=== PATIENT | female | born 1990 | race Caucasian/White ===

== ENCOUNTER 2017-03-23 20:40 | Emergency (ER) | payer OTHER ==
[2017-03-23] MEDS ORDERED: SODIUM CHLORIDE 0.9% 1,000 ML IV ONE (22:37)
[2017-03-23] MEDS ORDERED: KETOROLAC 30 MG/ML 1 ML VIAL IVP STA (22:37)
--- NOTE | 2017-03-23 22:38 | ED ---
General Adult HPI - General Chief complaint: Abdominal Pain Stated complaint: Back Pain Time Seen by Provider: 03/23/17 21:34 Source: patient, RN notes reviewed Mode of arrival: ambulatory Limitations: no limitations - History of Present Illness Initial comments: patient is a 26-year-old female presents to the emergency room for evaluation of low back pain. Patient states the pain has been going on for the last few days. Patient states she feels like she has a kidney infection. Patient states she has a history of kidney infections. Patient states been having on-and-off hot flashes and chills. Patient denies any pain or burning during urination or blood in urine. Patient denies history of kidney stones. Patient states she is nauseous but denies any vomiting. Patient denies abdominal pain. Patient denies constipation or diarrhea. - Related Data Home Medications Medication Instructions Recorded Confirmed Medroxyprogesterone Acetate 150 mg IM DIRECTED 05/01/15 08/21/16 [Depo-Provera] Omeprazole [PriLOSEC] 20 mg PO DAILY 08/21/16 08/21/16 Previous Rx's Medication Instructions Recorded Ibuprofen [Motrin] 600 mg PO Q6HR PRN #20 tab 03/24/17 Allergies Allergy/AdvReac Type Severity Reaction Status Date / Time cetirizine HCl [From Zyrtec] Allergy Unknown Rash/Hives Verified 03/23/17 20:46 Review of Systems ROS Statement: Those systems with pertinent positive or pertinent negative responses have been documented in the HPI. ROS Other: All systems not noted in ROS Statement are negative. Past Medical History Past Medical History: Hypertension Additional Past Medical History / Comment(s): Depression, migraine History of Any Multi-Drug Resistant Organisms: None Reported Past Surgical History: No Surgical Hx Reported Additional Past Surgical History / Comment(s): EGD Past Anesthesia/Blood Transfusion Reactions: No Reported Reaction Past Psychological History: Depression Smoking Status: Former smoker Past Alcohol Use History: None Reported Additional Past Alcohol Use History / Comment(s): Pt states she is prescribed Wellbutrin from her PCP Dr. Jolie Bedoya, however she quit taking it "a couple of weeks ago because I was going to bars drinking and singing Karoke." Past Drug Use History: None Reported - Past Family History Mother Family Medical History: Cancer General Exam - General Exam Comments Initial Comments: Laying in exam room, no distress. Limitations: no limitations General appearance: alert, in no apparent distress Head exam: Present: atraumatic, normocephalic, normal inspection Eye exam: Present: normal appearance ENT exam: Present: normal exam Neck exam: Present: normal inspection Respiratory exam: Present: normal lung sounds bilaterally. Absent: respiratory distress Cardiovascular Exam: Present: regular rate, normal rhythm, normal heart sounds GI/Abdominal exam: Present: soft, normal bowel sounds. Absent: distended, tenderness, guarding, rebound, rigid Extremities exam: Present: normal inspection Back exam: Present: normal inspection, CVA tenderness (R), CVA tenderness (L), paraspinal tenderness (B/L lumbosacral spine) Neurological exam: Present: alert, oriented X3, CN II-XII intact, normal gait Psychiatric exam: Present: normal affect, normal mood Skin exam: Present: warm, dry, intact, normal color. Absent: rash Course Vital Signs 03/23/17 03/24/17 20:43 01:38 Temperature 97.9 F 98.4 F Pulse Rate 72 74 Respiratory 16 18 Rate Blood Pressure 185/95 147/71 O2 Sat by Pulse 99 96 Oximetry Medical Decision Making - Medical Decision Making patient's 26-year-old female presents emergency room for evaluation of back pain. Pain is worse with movement. Urinalysis shows no concerning findings. Laceration of the concerning findings. CT abdomen/pelvis showed no signs of kidney infection. Patient most likely has a strain of the lower back. Advised patient take ibuprofen and to apply heat. Patient states she understands everything that was discussed with her. Return parameters discussed. Case discussed with Dr. Wong. - Lab Data Result diagrams: 03/23/17 22:25 03/23/17 22:25 Lab Results 03/23/17 03/23/17 03/23/17 Range/Units 22:25 22:25 22:25 WBC 11.8 H (3.8-10.6) k/uL RBC 4.46 (3.80-5.40) m/uL Hgb 12.1 (11.4-16.0) gm/dL Hct 37.4 (34.0-46.0) % MCV 83.9 (80.0-100.0) fL MCH 27.0 (25.0-35.0) pg MCHC 32.2 (31.0-37.0) g/dL RDW 14.9 (11.5-15.5) % Plt Count 311 (150-450) k/uL Neutrophils % 59 % Lymphocytes % 31 % Monocytes % 4 % Eosinophils % 3 % Basophils % 0 % Neutrophils # 7.0 (1.3-7.7) k/uL Lymphocytes # 3.7 (1.0-4.8) k/uL Monocytes # 0.5 (0-1.0) k/uL Eosinophils # 0.4 (0-0.7) k/uL Basophils # 0.1 (0-0.2) k/uL Sodium 142 (137-145) mmol/L Potassium 4.2 (3.5-5.1) mmol/L Chloride 110 H (98-107) mmol/L Carbon Dioxide 22 (22-30) mmol/L Anion Gap 10 mmol/L BUN 13 (7-17) mg/dL Creatinine 0.70 (0.52-1.04) mg/dL Est GFR (MDRD) Af Amer >60 (>60 ml/min/1.73 sqM) Est GFR (MDRD) Non-Af >60 (>60 ml/min/1.73 sqM) Glucose 83 (74-99) mg/dL Calcium 9.4 (8.4-10.2) mg/dL Total Bilirubin 0.3 (0.2-1.3) mg/dL AST 25 (14-36) U/L ALT 26 (9-52) U/L Alkaline Phosphatase 47 (38-126) U/L Total Protein 7.0 (6.3-8.2) g/dL Albumin 3.9 (3.5-5.0) g/dL Amylase 65 (30-110) U/L Lipase 136 (23-300) U/L Urine Color Urine Appearance (Clear) Urine pH (5.0-8.0) Ur Specific [place] (1.001-1.035) Urine Protein (Negative) Urine Glucose (UA) (Negative) Urine Ketones (Negative) Urine Blood (Negative) Urine Nitrite (Negative) Urine Bilirubin (Negative) Urine Urobilinogen (<2.0) mg/dL Ur Leukocyte Esterase (Negative) Urine HCG, Qual Not Detected (Not Detectd) 03/23/17 Range/Units 22:25 WBC (3.8-10.6) k/uL RBC (3.80-5.40) m/uL Hgb (11.4-16.0) gm/dL Hct (34.0-46.0) % MCV (80.0-100.0) fL MCH (25.0-35.0) pg MCHC (31.0-37.0) g/dL RDW (11.5-15.5) % Plt Count (150-450) k/uL Neutrophils % % Lymphocytes % % Monocytes % % Eosinophils % % Basophils % % Neutrophils # (1.3-7.7) k/uL Lymphocytes # (1.0-4.8) k/uL Monocytes # (0-1.0) k/uL Eosinophils # (0-0.7) k/uL Basophils # (0-0.2) k/uL Sodium (137-145) mmol/L Potassium (3.5-5.1) mmol/L Chloride (98-107) mmol/L Carbon Dioxide (22-30) mmol/L Anion Gap mmol/L BUN (7-17) mg/dL Creatinine (0.52-1.04) mg/dL Est GFR (MDRD) Af Amer (>60 ml/min/1.73 sqM) Est GFR (MDRD) Non-Af (>60 ml/min/1.73 sqM) Glucose (74-99) mg/dL Calcium (8.4-10.2) mg/dL Total Bilirubin (0.2-1.3) mg/dL AST (14-36) U/L ALT (9-52) U/L Alkaline Phosphatase (38-126) U/L Total Protein (6.3-8.2) g/dL Albumin (3.5-5.0) g/dL Amylase (30-110) U/L Lipase (23-300) U/L Urine Color Colorless Urine Appearance Clear (Clear) Urine pH 6.5 (5.0-8.0) Ur Specific [place] 1.002 (1.001-1.035) Urine Protein Negative (Negative) Urine Glucose (UA) Negative (Negative) Urine Ketones Negative (Negative) Urine Blood Negative (Negative) Urine Nitrite Negative (Negative) Urine Bilirubin Negative (Negative) Urine Urobilinogen <2.0 (<2.0) mg/dL Ur Leukocyte Esterase Negative (Negative) Urine HCG, Qual (Not Detectd) - Radiology Data Radiology results: report reviewed, image reviewed Disposition Clinical Impression: Low back pain Disposition: HOME SELF-CARE Condition: Good Instructions: Acute Low Back Pain (ED), Lower Back Exercises (ED) Additional Instructions: Take Tylenol or Motrin as needed for pain. Warm moist heat. Please follow up with primary care provider in 1-2 days. If any new symptom arises or symptoms worsen, return to ER as soon as possible. Prescriptions: Ibuprofen [Motrin] 600 mg PO Q6HR PRN #20 tab PRN Reason: Pain Referrals: Jolie Bedoya DO [Primary Care Provider] - 1-2 days Time of Disposition: 00:51
[2017-03-23 22:45] LABS: Basophils # (A) 0.1 k/uL (0-0.2); Basophils % (A) 0 %; CH 27.1; CHCM 32.4; Eosinophils # (A) 0.4 k/uL (0-0.7); Eosinophils % (A) 3 %; HCT 37.4 % (34.0-46.0); HDW 2.74; HGB 12.1 gm/dL (11.4-16.0); Luc # (Auto) 0.25; Luc % (Auto) 2; Lymphocytes # (A) 3.7 k/uL (1.0-4.8); Lymphocytes % (A) 31 %; MCHC 32.2 g/dL (31.0-37.0); MCV 83.9 fL (80.0-100.0); Mean Platelet Volume 6.8; Monocytes # (A) 0.5 k/uL (0-1.0); Monocytes % (A) 4 %; Neutrophils % (A) 59 %; RBC 4.46 m/uL (3.80-5.40); RDW 14.9 % (11.5-15.5); WBC 11.8 k/uL (3.8-10.6); WBC (Perox) 12.59
[2017-03-23 22:46] LABS: Appearance,Urine Clear (Clear); Bilirubin,Urine Negative (Negative); Glucose,Urine (UA) Negative (Negative); Ketones,Urine Negative (Negative); Leukocyte Esterase,Urine Negative (Negative); Nitrite,Urine Negative (Negative); PH, Urine 6.5 (5.0-8.0); Protein,Urine Negative (Negative); Specific Gravity,Urine 1.002 (1.001-1.035); UA Billing (MACRO vs. MICRO) CHEM; Urobilinogen,Urine <2.0 mg/dL (<2.0)
[2017-03-23 22:56] LABS: ALT 26 U/L (9-52); AST 25 U/L (14-36); Alkaline Phosphatase 47 U/L (38-126); Amylase 65 U/L (30-110); Anion Gap 10 mmol/L; Blood Urea Nitrogen 13 mg/dL (7-17); Calcium 9.4 mg/dL (8.4-10.2); Carbon Dioxide 22 mmol/L (22-30); Chloride 110 mmol/L (98-107); Glucose 83 mg/dL (74-99); Non-African American GFR(MDRD) >60 (>60 ml/min/1.73 sqM); Potassium 4.2 mmol/L (3.5-5.1); Sodium 142 mmol/L (137-145); Total Bilirubin 0.3 mg/dL (0.2-1.3)
--- NOTE | 2017-03-24 00:44 | CT ---
EXAM: CT Abdomen and Pelvis Without Intravenous Contrast CLINICAL HISTORY: Reason: Pain TECHNIQUE: Axial computed tomography images of the abdomen and pelvis without intravenous contrast. CTDI is 41.2 mGy and DLP is 2252.8 mGy-cm. This CT exam was performed using one or more of the following dose reduction techniques: automated exposure control, adjustment of the mA and/or kV according to patient size, and/or use of iterative reconstruction technique. COMPARISON: CT 08/21/16. FINDINGS: Artifacts: Motion artifact. Lower thorax: No acute findings. ABDOMEN: Liver: Unremarkable. Gallbladder and bile ducts: Cholelithiasis. Pancreas: Unremarkable. Spleen: Unremarkable. Adrenals: Unremarkable. Kidneys and ureters: Minimal prominence of the right greater than left renal collecting systems without evidence of ureteral stone. Stomach and bowel: Gastric wall thickening or underdistention. No evidence of bowel obstruction. Appendix: No findings to suggest acute appendicitis. PELVIS: Bladder: Unremarkable. Reproductive: Small right ovarian follicle/cyst measuring 2.3 cm. ABDOMEN and PELVIS: Intraperitoneal space: Unremarkable. No free air. No significant fluid collection. Bones/joints: No acute fracture. Soft tissues: Unremarkable. Vasculature: Unremarkable. Lymph nodes: Unremarkable. IMPRESSION: 1. Motion artifact. 2. Minimal prominence of the right greater than left renal collecting systems without evidence of ureteral stone. 3. Gastric wall thickening or underdistention. 4. Cholelithiasis. 5. Small right ovarian follicle/cyst.
[2017-03-24 01:40] VITALS: BP 147/71; PULSE 74; RESP 18; TEMP 98.4
== END 2017-03-24 01:15 | disposition home or self-care (01) ==
LOC: EC 20:40
DX: M54.5 Low back pain (principal); Z88.8 Allergy status to other drugs, medicaments and biological substances; Z87.891 Personal history of nicotine dependence; Z79.899 Other long term (current) drug therapy
CPT/HCPCS: 99284; 96374; 36415; 80053; 82150; 83690; 85025; 81003; 81025; 74176; J1885

== ENCOUNTER → 2018-03-28 | Outpatient (CLI) | payer OTHER ==
--- NOTE | 2018-03-28 20:23 | MR ---
EXAMINATION TYPE: MR brain wo DATE OF EXAM: 03/28/2018 COMPARISON: NONE HISTORY: Headaches T1-weighted sagittal, T2, FLAIR, and diffusion axial, and T2 coronal coronal views of the brain are s ubmitted. There is no evidence of acute ischemia. The ventricles, basal cisterns, and sulci overlying the conv exities are consistent with the patient's age. There is no mass effect. Craniocervical junction maintained. Sella turcica has a normal appearance. No cerebellopontine angle mass. There is changes of severe right maxillary sinusitis and moderate to severe ethmoidal sinusitis. IMPRESSION: 1. No acute intracranial process. 2. Severe right maxillary and ethmoidal sinusitis. EXAMINATION TYPE: MR cervical spine wo DATE OF EXAM: 03/28/2018 COMPARISON: NONE HISTORY: Headaches TECHNIQUE: T1 sagittal and coronal, T2 sagittal, and gradient echo axial views of the cervical spine are submitted. FINDINGS: The cranial cervical junction is preserved. There is no abnormal signal seen within the sp inal cord or paraspinal soft tissues. Large vertebral body hemangioma of T2. At C2-3 there is no degenerative disc disease, disc herniation, canal stenosis, or foraminal encroach ment. At C3-4 there is no degenerative disc disease, disc herniation, canal stenosis, or foraminal encroach ment At C4-5 there is no degenerative disc disease, disc herniation, canal stenosis, or foraminal encroach ment At C5-6 there is no degenerative disc disease, disc herniation, canal stenosis, or foraminal encroach ment At C6-7 there is no degenerative disc disease, disc herniation, canal stenosis, or foraminal encroach ment At C7-T1 there is no degenerative disc disease, disc herniation, canal stenosis, or foraminal encroac hment IMPRESSION: 1. No acute process.
--- NOTE | 2018-03-28 20:30 | MR ---
EXAMINATION TYPE: MR angio head wo con DATE OF EXAM: 03/28/2018 COMPARISON: NONE HISTORY: Headache TECHNIQUE: Utilizing 3-D [id number] intracranial MRA of the [place] was performed. FINDINGS: The vertebrobasilar and carotid systems are patent. There is mild prominence the anterior communicat ing artery.. Posterior cerebral artery in the right originates from the anterior circulation. IMPRESSION: 1. There is mild prominence and tortuosity at the level of the anterior communicating artery and coul d be related to tortuosity or a small fenestration. Tiny 1 to 2 mm aneurysm not excluded. Recommend a 6 month follow-up MRA [place].
== END ==
LOC: RADMRIMAIN 19:07
PROVIDERS: ATTEND Psychiatry & Neurology Neurology
DX: M54.2 Cervicalgia (principal); I77.1 Stricture of artery; M54.81 Occipital neuralgia
CPT/HCPCS: 70544; 70551; 72141

== ENCOUNTER 2018-04-03 21:10 | Emergency (ER) | payer OTHER ==
[2018-04-03 21:27] VITALS: RESP 18
[2018-04-03] MEDS ORDERED: diphenhydrAMINE 50 MG CAP PO STA (21:32)
[2018-04-03] MEDS ORDERED: METOCLOPRAMIDE 5 MG/ML 2 ML VIAL IM STA (21:32)
[2018-04-03] MEDS ORDERED: KETOROLAC 60 MG/2 ML VIAL IM STA (21:32)
--- NOTE | 2018-04-03 21:34 | ED ---
Headache HPI - General Chief Complaint: Headache Stated Complaint: Headache Time Seen by Provider: 04/03/18 21:17 Source: patient, family, RN notes reviewed Mode of arrival: ambulatory Limitations: no limitations - History of Present Illness Initial Comments: 27-year-old female presents emergency Department with chief complaint of a headache. Patient states that it started around 11 AM this morning. Patient states the headache has not worsened but states not resolved. She states is not the worse headache of her life. She complains of frontal headache and pressure and heart cheeks. Patient had recent MRI which showed acute sinusitis severe maxillary and sphenoid. Patient reports signs congestion and sinus pressure. Patient denies any focal weakness. She hasn't some light sensitivity but denies any nausea vomiting, fever, chills, neck pain or neck stiffness. - Related Data Home Medications Medication Instructions Recorded Confirmed Medroxyprogesterone Acetate 150 mg IM DIRECTED 05/01/15 04/03/18 [Depo-Provera] Omeprazole [PriLOSEC] 20 mg PO DAILY 08/21/16 04/03/18 Previous Rx's Medication Instructions Recorded Ibuprofen [Motrin] 600 mg PO Q6HR PRN #20 tab 03/24/17 Amoxicillin/Potassium Clav 1 tab PO Q12HR #20 tab 04/03/18 [Augmentin 875-125 Tablet] Butalb/APAP/Caff 50-325-40Mg 1 tab PO Q4H PRN #10 tablet 04/03/18 [Fioricet 50-325-40] Allergies Allergy/AdvReac Type Severity Reaction Status Date / Time cetirizine HCl [From Zyrtec] Allergy Unknown Rash/Hives Verified 04/03/18 21:26 Review of Systems ROS Statement: Those systems with pertinent positive or pertinent negative responses have been documented in the HPI. ROS Other: All systems not noted in ROS Statement are negative. Past Medical History Past Medical History: Hypertension Additional Past Medical History / Comment(s): Depression, migraine History of Any Multi-Drug Resistant Organisms: None Reported Past Surgical History: No Surgical Hx Reported Additional Past Surgical History / Comment(s): EGD Past Anesthesia/Blood Transfusion Reactions: No Reported Reaction Past Psychological History: Depression Smoking Status: Former smoker Past Alcohol Use History: None Reported Past Drug Use History: None Reported - Past Family History Mother Family Medical History: Cancer General Exam Limitations: no limitations General appearance: alert, in no apparent distress Head exam: Present: atraumatic, normocephalic, normal inspection Eye exam: Present: normal appearance, PERRL, EOMI. Absent: scleral icterus, conjunctival injection, periorbital swelling ENT exam: Present: normal oropharynx, mucous membranes moist, TM's normal bilaterally. Absent: normal exam (Moderate maxillary sinus tenderness and frontal) Neck exam: Present: normal inspection, full ROM. Absent: tenderness, meningismus, lymphadenopathy Respiratory exam: Present: normal lung sounds bilaterally. Absent: respiratory distress, wheezes, rales, rhonchi, stridor Cardiovascular Exam: Present: regular rate, normal rhythm, normal heart sounds. Absent: systolic murmur, diastolic murmur, rubs, gallop, clicks Extremities exam: Present: normal inspection, full ROM, normal capillary refill. Absent: tenderness, pedal edema, joint swelling, calf tenderness Neurological exam: Present: alert, oriented X3, CN II-XII intact, motor sensory deficit Skin exam: Present: warm, dry, intact, normal color. Absent: rash Course Vital Signs 04/03/18 21:21 Temperature 98.6 F Pulse Rate 92 Respiratory 18 Rate Blood Pressure 188/83 O2 Sat by Pulse 98 Oximetry Medical Decision Making - Medical Decision Making 27-year-old female presents from for headache. Patient's headache is related to sinusitis. Patient has normal neuro exam. Patient will be given IM injections in emergency Department discharge on Augmentin and follow up with ENT. Patient had an MRI which showed severe sinusitis recently. Patient also been referred to a neurosurgeon because there is a possible aneurysm. Patient' s headache is not the worse of her life. Patient will be given aerosols discharged. Return parameters were discussed Disposition Clinical Impression: Acute sinusitis, Headache Disposition: HOME SELF-CARE Condition: Stable Instructions: Acute Headache (ED) Additional Instructions: Please return to the Emergency Department if symptoms worsen or any other concerns. Prescriptions: Amoxicillin/Potassium Clav [Augmentin 875-125 Tablet] 1 tab PO Q12HR #20 tab Butalb/APAP/Caff 50-325-40Mg [Fioricet 50-325-40] 1 tab PO Q4H PRN #10 tablet PRN Reason: Headache Is patient prescribed a controlled substance at d/c from ED?: No Referrals: Jolie Bedoya DO [Primary Care Provider] - 1-2 days Yeyo Clement MD [STAFF PHYSICIAN] - 1-2 days Time of Disposition: 21:34
[2018-04-03 21:53] VITALS: BP 170/68; PULSE 91; TEMP 98.3
== END 2018-04-03 21:50 | disposition home or self-care (01) ==
LOC: EC 21:10
DX: J01.00 Acute maxillary sinusitis, unspecified (principal); J01.30 Acute sphenoidal sinusitis, unspecified; Z87.891 Personal history of nicotine dependence; Z79.3 Long term (current) use of hormonal contraceptives; Z79.899 Other long term (current) drug therapy; Z88.8 Allergy status to other drugs, medicaments and biological substances
CPT/HCPCS: 99283; 96372 ×2; J2765; J1885

== ENCOUNTER 2018-05-26 15:35 | Emergency (ER) | payer OTHER ==
[2018-05-26] MEDS ORDERED: SODIUM CHLORIDE 0.9% 1,000 ML IV STA ×2 (15:46)
[2018-05-26] MEDS ORDERED: ONDANSETRON 4 MG/2 ML VIAL IVP STA (15:59)
[2018-05-26] MEDS ORDERED: KETOROLAC 30 MG/ML 1 ML VIAL IVP STA (15:59)
[2018-05-26 16:18] LABS: Basophils # (A) 0.1 k/uL (0-0.2); Basophils % (A) 1 %; Eosinophils # (A) 0.2 k/uL (0-0.7); Eosinophils % (A) 2 %; HCT 41.4 % (34.0-46.0); HGB 13.5 gm/dL (11.4-16.0); Lymphocytes # (A) 2.9 k/uL (1.0-4.8); Lymphocytes % (A) 28 %; MCH 26.4 pg (25.0-35.0); MCHC 32.6 g/dL (31.0-37.0); MCV 81.1 fL (80.0-100.0); Mean Platelet Volume 7.2; Monocytes # (A) 0.5 k/uL (0-1.0); Monocytes % (A) 5 %; Neutrophils # (A) 6.5 k/uL (1.3-7.7); Neutrophils % (A) 63 %; Platelet Count 317 k/uL (150-450); RBC 5.11 m/uL (3.80-5.40); RDW 14.7 % (11.5-15.5); WBC 10.3 k/uL (3.8-10.6)
[2018-05-26 16:37] LABS: ALT 34 U/L (9-52); AST 24 U/L (14-36); Albumin 4.1 g/dL (3.5-5.0); Alkaline Phosphatase 50 U/L (38-126); Amylase 48 U/L (30-110); Anion Gap 9 mmol/L; Blood Urea Nitrogen 10 mg/dL (7-17); Calcium 9.6 mg/dL (8.4-10.2); Carbon Dioxide 23 mmol/L (22-30); Chloride 108 mmol/L (98-107); Glucose 84 mg/dL (74-99); Lipase 73 U/L (23-300); Potassium 4.3 mmol/L (3.5-5.1); Sodium 140 mmol/L (137-145); Total Bilirubin 0.5 mg/dL (0.2-1.3); Total Protein 7.2 g/dL (6.3-8.2)
--- NOTE | 2018-05-26 16:54 | US ---
EXAMINATION TYPE: US gallbladder DATE OF EXAM: 05/26/2018 COMPARISON: CT's CLINICAL HISTORY: Pain. RUQ pain EXAM MEASUREMENTS: Liver Length: 13.8 cm Gallbladder Wall: 0.1 cm CBD: 0.3 cm Right Kidney: 11.8 x 4.5 x 4.8 cm Very limited scan due to body habitus and midline bowel gas. Pancreas: not visualized due to midline bowel gas Liver: difficult to penetrate Gallbladder: several tiny mobile stones Evidence for sonographic Vilchis's sign: Yes CBD: wnl Right Kidney: No hydronephrosis or masses seen IMPRESSION: Multiple small gallstones. No dilated ducts.
--- NOTE | 2018-05-26 16:57 | ED ---
Abdominal Pain HPI - General Chief Complaint: Abdominal Pain Stated Complaint: gallstone pain Time Seen by Provider: 05/26/18 15:45 Source: patient, RN notes reviewed, old records reviewed Mode of arrival: ambulatory Limitations: no limitations - History of Present Illness Initial Comments: 27-year-old female with a history of gallstones presents emergency department today with onset of right-sided abdominal pain. Patient reports the pain is worse with eating. She's had multiple episodes of vomiting within the past 2 days. Patient states that she has an appointment on Tuesday with Dr. Nina. She denies any fever or chills. Patient states that she's had no chest pain or shortness of breath. Normal bowel movements yesterday and normal urination. She is currently treated with Augmentin for chronic sinusitis. She' s been on these medications for the past month. - Related Data Home Medications Medication Instructions Recorded Confirmed Amoxic-Pot Clav 875-125Mg 1 tab PO BID 05/26/18 05/26/18 [Augmentin 875-125] Previous Rx's Medication Instructions Recorded Metoclopramide [Reglan] 10 mg PO ACHS #12 tab 05/26/18 traMADol HCL [Ultram] 50 mg PO Q6HR PRN 3 Days #12 tab 05/26/18 Allergies Allergy/AdvReac Type Severity Reaction Status Date / Time cetirizine HCl [From Zyrtec] Allergy Unknown Rash/Hives Verified 05/26/18 15:42 benzoyl peroxide Allergy Rash/Hives Verified 05/26/18 15:42 العراق[place] Allergy Rash/Hives Verified 05/26/18 15:42 SUN AdvReac Rash/Hives Uncoded 05/26/18 15:42 Review of Systems ROS Statement: Those systems with pertinent positive or pertinent negative responses have been documented in the HPI. ROS Other: All systems not noted in ROS Statement are negative. Past Medical History Past Medical History: Hypertension Additional Past Medical History / Comment(s): Depression, migraine History of Any Multi-Drug Resistant Organisms: None Reported Past Surgical History: No Surgical Hx Reported Additional Past Surgical History / Comment(s): EGD Past Anesthesia/Blood Transfusion Reactions: No Reported Reaction Past Psychological History: Depression Smoking Status: Former smoker Past Alcohol Use History: None Reported Past Drug Use History: None Reported - Past Family History Mother Family Medical History: Cancer General Exam - General Exam Comments Initial Comments: This is a 27-year-old male. Alert and oriented. No acute distress. Limitations: no limitations General appearance: alert, in no apparent distress Head exam: Present: atraumatic Eye exam: Present: normal appearance, PERRL, EOMI. Absent: scleral icterus, conjunctival injection, periorbital swelling ENT exam: Present: normal exam, mucous membranes moist Neck exam: Present: normal inspection. Absent: tenderness, meningismus, lymphadenopathy Respiratory exam: Present: normal lung sounds bilaterally. Absent: respiratory distress, wheezes, rales, rhonchi, stridor Cardiovascular Exam: Present: regular rate, normal rhythm, normal heart sounds. Absent: systolic murmur, diastolic murmur, rubs, gallop, clicks GI/Abdominal exam: Present: tenderness (Right upper quadrant), normal bowel sounds. Absent: soft ( tenderness.), distended, guarding, rebound, rigid Extremities exam: Present: normal inspection, full ROM, normal capillary refill. Absent: tenderness, pedal edema, joint swelling, calf tenderness Back exam: Present: normal inspection Neurological exam: Present: alert, oriented X3, CN II-XII intact Psychiatric exam: Present: normal affect, normal mood Skin exam: Present: warm Course Vital Signs 05/26/18 05/26/18 15:40 18:00 Temperature 98.7 F Pulse Rate 86 73 Respiratory 18 20 Rate Blood Pressure 134/99 143/88 O2 Sat by Pulse 98 100 Oximetry Medical Decision Making - Medical Decision Making 27-year-old female presents emergency department today with right upper quadrant abdominal pain. Worse with past 2 days. She's had had a history of gall process. This time I will obtain was unremarkable. Patient's white count is normal. Liver enzymes are normal. Urinalysis negative. At this time patient's ultrasound is showing small gallstones. No evidence of instructed process. Positive Vilchis sign. However Patient is afebrile vitals are stable. Patient will be discharged with close follow-up with primary care provider. She does have an appointment on Tuesday with Dr. Nina. Patient understood history plan will comply. Return parameters were discussed. Given a short course of pain medication. Patient filled out opiate awareness 1. - Lab Data Result diagrams: 05/26/18 16:00 05/26/18 16:00 Lab Results 05/26/18 05/26/18 05/26/18 Range/Units 16:00 16:00 18:06 WBC 10.3 (3.8-10.6) k/uL RBC 5.11 (3.80-5.40) m/uL Hgb 13.5 (11.4-16.0) gm/dL Hct 41.4 (34.0-46.0) % MCV 81.1 (80.0-100.0) fL MCH 26.4 (25.0-35.0) pg MCHC 32.6 (31.0-37.0) g/dL RDW 14.7 (11.5-15.5) % Plt Count 317 (150-450) k/uL Neutrophils % 63 % Lymphocytes % 28 % Monocytes % 5 % Eosinophils % 2 % Basophils % 1 % Neutrophils # 6.5 (1.3-7.7) k/uL Lymphocytes # 2.9 (1.0-4.8) k/uL Monocytes # 0.5 (0-1.0) k/uL Eosinophils # 0.2 (0-0.7) k/uL Basophils # 0.1 (0-0.2) k/uL Sodium 140 (137-145) mmol/L Potassium 4.3 (3.5-5.1) mmol/L Chloride 108 H (98-107) mmol/L Carbon Dioxide 23 (22-30) mmol/L Anion Gap 9 mmol/L BUN 10 (7-17) mg/dL Creatinine 0.68 (0.52-1.04) mg/dL Est GFR (CKD-EPI)AfAm >90 (>60 ml/min/1.73 sqM) Est GFR (CKD-EPI)NonAf >90 (>60 ml/min/1.73 sqM) Glucose 84 (74-99) mg/dL Calcium 9.6 (8.4-10.2) mg/dL Total Bilirubin 0.5 (0.2-1.3) mg/dL AST 24 (14-36) U/L ALT 34 (9-52) U/L Alkaline Phosphatase 50 (38-126) U/L Total Protein 7.2 (6.3-8.2) g/dL Albumin 4.1 (3.5-5.0) g/dL Amylase 48 (30-110) U/L Lipase 73 (23-300) U/L Urine Color Urine Appearance (Clear) Urine pH (5.0-8.0) Ur Specific [place] (1.001-1.035) Urine Protein (Negative) Urine Glucose (UA) (Negative) Urine Ketones (Negative) Urine Blood (Negative) Urine Nitrite (Negative) Urine Bilirubin (Negative) Urine Urobilinogen (<2.0) mg/dL Ur Leukocyte Esterase (Negative) Urine RBC (0-5) /hpf Urine WBC (0-5) /hpf Ur Squamous Epith Cells (0-4) /hpf Urine Mucus (None) /hpf Urine HCG, Qual Not Detected (Not Detectd) 05/26/18 Range/Units 18:06 WBC (3.8-10.6) k/uL RBC (3.80-5.40) m/uL Hgb (11.4-16.0) gm/dL Hct (34.0-46.0) % MCV (80.0-100.0) fL MCH (25.0-35.0) pg MCHC (31.0-37.0) g/dL RDW (11.5-15.5) % Plt Count (150-450) k/uL Neutrophils % % Lymphocytes % % Monocytes % % Eosinophils % % Basophils % % Neutrophils # (1.3-7.7) k/uL Lymphocytes # (1.0-4.8) k/uL Monocytes # (0-1.0) k/uL Eosinophils # (0-0.7) k/uL Basophils # (0-0.2) k/uL Sodium (137-145) mmol/L Potassium (3.5-5.1) mmol/L Chloride (98-107) mmol/L Carbon Dioxide (22-30) mmol/L Anion Gap mmol/L BUN (7-17) mg/dL Creatinine (0.52-1.04) mg/dL Est GFR (CKD-EPI)AfAm (>60 ml/min/1.73 sqM) Est GFR (CKD-EPI)NonAf (>60 ml/min/1.73 sqM) Glucose (74-99) mg/dL Calcium (8.4-10.2) mg/dL Total Bilirubin (0.2-1.3) mg/dL AST (14-36) U/L ALT (9-52) U/L Alkaline Phosphatase (38-126) U/L Total Protein (6.3-8.2) g/dL Albumin (3.5-5.0) g/dL Amylase (30-110) U/L Lipase (23-300) U/L Urine Color Light Yellow Urine Appearance Cloudy H (Clear) Urine pH 6.0 (5.0-8.0) Ur Specific [place] 1.009 (1.001-1.035) Urine Protein Negative (Negative) Urine Glucose (UA) Negative (Negative) Urine Ketones Negative (Negative) Urine Blood Negative (Negative) Urine Nitrite Negative (Negative) Urine Bilirubin Negative (Negative) Urine Urobilinogen <2.0 (<2.0) mg/dL Ur Leukocyte Esterase Negative (Negative) Urine RBC 7 H (0-5) /hpf Urine WBC 1 (0-5) /hpf Ur Squamous Epith Cells 6 H (0-4) /hpf Urine Mucus Rare H (None) /hpf Urine HCG, Qual (Not Detectd) - Radiology Data Radiology results: report reviewed Multiple small gallstones. No evidence of dilated ducts. Evidence of sonographic Vilchis sign time. Disposition Clinical Impression: Biliary colic Disposition: HOME SELF-CARE Condition: Good Instructions: Biliary Colic (ED) Additional Instructions: Clear liquid diet. Patient should follow-up with surgeon on Tuesday. Return to emergency department if any alarming signs or symptoms occur. Prescriptions: Metoclopramide [Reglan] 10 mg PO ACHS #12 tab traMADol HCL [Ultram] 50 mg PO Q6HR PRN 3 Days #12 tab PRN Reason: Pain Is patient prescribed a controlled substance at d/c from ED?: Yes When asked, does pt state using other controlled substances?: No If prescribed controlled substance>3 days was MAPS reviewed?: Prescribed <3 Days If opioid is for acute pain is fill amount 7 days or less?: Yes If Rx opioid, was Start Talking consent form obtained?: Yes Referrals: Jolie Bedoya DO [Primary Care Provider] - 1-2 days Time of Disposition: 18:46
[2018-05-26 18:27] LABS: Appearance,Urine Cloudy (Clear); Bilirubin,Urine Negative (Negative); Blood,Urine Negative (Negative); Color,Urine Light Yellow; Glucose,Urine (UA) Negative (Negative); Ketones,Urine Negative (Negative); Leukocyte Esterase,Urine Negative (Negative); Mucus,Urine Rare /hpf; Nitrite,Urine Negative (Negative); Protein,Urine Negative (Negative); RBC,Urine 7 /hpf (0-5); Specific Gravity,Urine 1.009 (1.001-1.035); Squamous Epithelial Cell,Urine 6 /hpf (0-4); Urobilinogen,Urine <2.0 mg/dL (<2.0); WBC,Urine 1 /hpf (0-5)
[2018-05-26 19:28] VITALS: BP 148/82; PULSE 71; RESP 18; TEMP 97.1
== END 2018-05-26 19:28 | disposition home or self-care (01) ==
LOC: EC 15:35
DX: K80.70 Calculus of gallbladder and bile duct without cholecystitis without obstruction (principal); Z87.891 Personal history of nicotine dependence; Z91.018 Allergy to other foods; Z91.048 Other nonmedicinal substance allergy status; Z88.8 Allergy status to other drugs, medicaments and biological substances
CPT/HCPCS: 36415; 80053; 82150; 83690; 85025; 81001; 81025; 76705; 99284; 96374; 96375; 96361 ×3; J2405; J1885

== ENCOUNTER 2018-06-09 10:24 | Day surgery (SDC) | payer OTHER ==
[2018-06-02 14:52] VITALS: BMI 53.0
--- NOTE | 2018-06-09 08:25 | P.GSHP ---
History of Present Illness H&P Date: 06/09/18 CHIEF COMPLAINT: Cholecystitis HISTORY OF PRESENT ILLNESS: The patient is a 27-year-old female who presents with history of epigastric including right upper quadrant abdominal pain. She underwent diagnostic studies for her gallbladder. Separately her clinical picture was consistent with cholecystitis. Now she presents for surgical intervention. PAST MEDICAL HISTORY: Please see list PAST SURGICAL HISTORY: Please see list MEDICATIONS: Please see list ALLERGIES: Denies. SOCIAL HISTORY: No illicit drug use or recent tobacco use FAMILY HISTORY: Pertinent for gallbladder disease REVIEW OF ORGAN SYSTEMS: CONSTITUTIONAL: No reports of fevers or chills. HEENT: Denies any troubles with the vision or hearing. ENDOCRINE: No reports of hypothyroidism. No diabetes. RESPIRATORY: No recent pneumonias. CARDIOVASCULAR: Denies chest pain or palpitations GI: No blood in stools or constipation. MUSCULOSKELETAL: Has occasional joint pain including back pain. NEURO: No seizure disorders or headaches. No recent stroke. PSYCH: No depression or suicidal ideation. HEMATOLOGIC: No personal or family history of DVTs or pulmonary emboli. PHYSICAL EXAM: VITAL SIGNS: Afebrile vital signs stable GENERAL: Well-developed pleasant in no acute distress. HEENT: No scleral icterus. Extraocular movements grossly intact. Moist buccal mucosa. NECK: Supple without lymphadenopathy. CHEST: Unlabored respirations. Equal bilateral excursions. CARDIOVASCULAR: Regular rate regular rhythm rhythm. Distal 2+ pulses. ABDOMEN: Soft, nondistended. Tender along the epigastrium and right upper quadrant. MUSCULOSKELETAL: No clubbing, cyanosis, or edema. NEURO: Cranial nerves II to XII within normal limits. No focal or lateralizing signs. PSYCH: Alert and oriented to person, place and time. ASSESSMENT: 1. Epigastric and right upper quadrant abdominal pain 2. Chronic cholecystitis 3. Symptomatic gallstones. PLAN: 1. Will need a robotic cholecystectomy possible open. Benefits and risks were described. 2. Heparin for DVT prophylaxis 5000 units. 3. Antibiotic prophylaxis. Past Medical History Past Medical History: Hypertension, Neurologic Disorder Additional Past Medical History / Comment(s): , HTN UNDER CONTROL AT THIS TIME, migraine, GALLBLADDER DISORDER History of Any Multi-Drug Resistant Organisms: None Reported Past Surgical History: No Surgical Hx Reported Additional Past Surgical History / Comment(s): EGD Past Anesthesia/Blood Transfusion Reactions: No Reported Reaction Smoking Status: Former smoker - Past Family History Mother Family Medical History: Cancer Medications and Allergies Home Medications Medication Instructions Recorded Confirmed Type Medroxyprogesterone Acetate 150 mg IM Q90D 06/02/18 06/02/18 History [Depo-Provera] Naproxen Sodium [Aleve] 220 mg PO BID PRN 06/02/18 06/02/18 History Allergies Allergy/AdvReac Type Severity Reaction Status Date / Time cetirizine HCl [From [facility]] Allergy Unknown Rash/Hives Verified 06/02/18 14:46 benzoyl peroxide Allergy Rash/Hives Verified 06/02/18 14:46 العراقي Allergy Rash/Hives Verified 06/02/18 14:46 SUN AdvReac Rash/Hives Uncoded 06/02/18 14:46
[~2018-06-09 10:24] MED LIST: DEXAMETHASONE SOD PHOSPHATE 10 MG/ML 1 ML VIAL IV ONE; HEPARIN SODIUM,PORCINE 5,000 UNIT/ML 1 ML VIAL SQ ONE; INDOCYANINE GREEN 25 MG VIAL IV STA; LACTATED RINGERS 1,000 ML IV SCH; LIDOCAINE 1% 20 ML VIAL (10MG/ML) FOR IV START INTRADERMA PRN; MIDAZOLAM 2 MG/2 ML VIAL IV PRN
[2018-06-09 11:43] VITALS: RESP 16
[2018-06-09] MEDS: ONDANSETRON 4 MG/2 ML VIAL IVP ONE ×2 (11:44→14:45)
[2018-06-09] MEDS ORDERED: MIDAZOLAM 2 MG/2 ML VIAL ONE (12:55)
[2018-06-09] MEDS ORDERED: LIDOCAINE 1% INJ 10MG/ML (20 ML MDV) ONE (12:55)
[2018-06-09] MEDS ORDERED: fentaNYL (PF) 50 MCG/ML 2 ML AMP ONE (12:55)
[2018-06-09] MEDS ORDERED: NEOSTIGMINE 1 MG/ML 10 ML VIAL ONE (12:55)
[2018-06-09] MEDS ORDERED: ROCURONIUM BROMIDE 10 MG/ML 10 ML VIAL IV ONE (12:55)
[2018-06-09] MEDS ORDERED: SUCCINYLCHOLINE CHLORIDE 100 MG/5 ML SYR IV ONE (12:55)
[2018-06-09] MEDS ORDERED: GLYCOPYRROLATE 0.2 MG/ML 2 ML VIAL ONE (12:55)
[2018-06-09] MEDS ORDERED: PROPOFOL 10 MG/ML 20 ML VIAL IV ONE (12:55)
[2018-06-09] MEDS ORDERED: HYDROmorphone (PF) 1 MG/ML ONE (12:55)
[2018-06-09] MEDS ORDERED: BUPIVACAIN-EPI 0.5%-1:200,000 30 ML VIAL SQ ONE ×2 (13:17→13:23)
[2018-06-09] MEDS ORDERED: LACTATED RINGERS 1,000 ML IV ONE ×2 (13:44→13:55)
--- NOTE | 2018-06-09 14:07 | P.OP ---
Date of Procedure: 06/09/18 Description of Procedure: SURGEON: JOSE ESPARZA MD PREOPERATIVE DIAGNOSES: 1. Symptomatic gallstones 2. Chronic cholecystitis 3. Morbid obesity due to excess calories, BMI 53.0 POSTOPERATIVE DIAGNOSES: 1. Symptomatic gallstones 2. Chronic cholecystitis 3. Morbid obesity due to excess calories, BMI 53.0 OPERATION: Robotic-assisted da Angie Xi laparoscopic cholecystectomy, multiport with FIREFLY ESTIMATED BLOOD LOSS: 5 mL. SPECIMENS REMOVED: Gallbladder. COMPLICATIONS: None. OPERATIVE FINDINGS: 1. Chronic cholecystitis INDICATIONS: The patient is a 27-year-old female who presents with cholelcystitis. Surgical intervention with a laparoscopic cholecystectomy was described at length including injury to the biliary tree, bleeding, infection, need for further surgery. Informed consent was obtained. Robotic assisted laparoscopic approach was described. Benefits and risks of the procedure including but not limited to bleeding, infection, injury to the biliary tree was described. Informed consent was obtained. DESCRIPTION OF PROCEDURE: Patient was brought to the operating room, placed in supine position. After general induction, the abdomen had been prepped and draped in standard sterile fashion. The robotic da Angie XI system was primed. After a timeout protocol was performed, the patient had been prepped and draped in standard sterile fashion. The patient was injected with indocyanine green. A 5 mm 0 degrees laparoscopic trocar entry was performed along the left upper quadrant. The abdomen insufflated to 15 mmHg pressure which she tolerated well. Diagnostic laparoscopy demonstrated no injury to bowel viscera or mesentery. The liver surface was unremarkable. Next, two 8 mm robotic ports were placed along the right upper abdomen. The camera 8-mm port was maintained along the epigastrium. Another 8 mm port was placed along the left upper abdominal wall after exchanging the 5 mm port. Please note that the ports were placed at least 10 to 15 cm away from the target anatomy of the gallbladder. The robot was docked along the left lateral abdomen. The patient was repositioned in reverse Trendelenburg position. Using a grasper for arm 3, a grasper for arm 4, including hook cautery for arm 1 , the robotic system was docked and primed as described. Instruments were interchanged by the acute care certified nursing assistant including hook cautery, Bovie cautery and clip appliers. I had sat at the console. Adhesions were identified along the infundibulum of the gallbladder and addressed using hook cautery. The gallbladder fundus was retracted over the dome of the liver. Initial attention was brought to the infundibulum which was gently retracted in the inferior lateral approach. Using a grasper, the cystic duct including the cystic artery was carefully skeletonized. FIREFLY was used to identify the cystic artery and cystic structures. Large PLASTIC clips were used throughout the entire case. Using a clip haulage boss 2 clips were placed proximally, and 1 clip was placed distally along the cystic duct and then cauterized with the cautery. Again care was taken to avoid any injury to the biliary tree as the common bile duct was clearly visualized during this portion of dissection. Next, the cystic artery was similarly clipped and cauterized. Electro-Bovie cautery was used to remove the gallbladder from the hepatic fossa. Hemostasis was checked and found to be adequate. The robot was undocked. I re-scrubbed into the case. Using a 10 mm Endo Catch bag via the left upper quadrant incision, the specimen was removed from the abdominal cavity. All pneumoperitoneum instruments were evacuated from the abdominal cavity. The incisions were reapproximated using 4-0 Monocryl in an interrupted subcuticular fashion. Fascial defects were less than 8 mm in size. Please note along the trocar sites, local anesthetic was placed as a field block prior to insertion of all instruments. Liquid glue was applied to the skin. At the end of the procedure needle, sponge, and instrument count had been verified correct by the surgical elastic knitter hand frame. The patient was transferred to postanesthesia care unit in stable condition. Intraoperative films were shared with the patient's family who were very pleased with the level of care. Console time 13 minutes Plan - Discharge Summary New Discharge Prescriptions: No Action Naproxen Sodium [Aleve] 220 mg PO BID PRN PRN Reason: Headache Medroxyprogesterone Acetate [Depo-Provera] 150 mg IM Q90D Discharge Medication List Medroxyprogesterone Acetate [Depo-Provera] 150 mg IM Q90D 06/02/18 [History] Naproxen Sodium [Aleve] 220 mg PO BID PRN 06/02/18 [History]
[2018-06-09 14:19] VITALS: TEMP 97.8
[2018-06-09] MEDS: fentaNYL (PF) 50 MCG/ML 2 ML AMP IV PRN ×2 (14:25→14:33)
[2018-06-09] MEDS: HYDROmorphone 1 MG/ML 1 ML SYRINGE IVP ONE ×2 (14:50→14:59)
[2018-06-09 16:18] VITALS: BP 128/73; PULSE 80
[2018-06-09] MEDS ORDERED: HYDROcodone/APAP 5-325MG 1 EACH TAB PO ONE (16:22)
== END 2018-06-09 17:19 | disposition home or self-care (01) ==
LOC: OR 10:24
PROVIDERS: ATTEND Surgery Plastic and Reconstructive Surgery
DX: K80.10 Calculus of gallbladder with chronic cholecystitis without obstruction (principal); E66.01 Morbid (severe) obesity due to excess calories; Z68.43 Body mass index [BMI] 50.0-59.9, adult; I10 Essential (primary) hypertension; Z87.891 Personal history of nicotine dependence; Z79.3 Long term (current) use of hormonal contraceptives; Z88.8 Allergy status to other drugs, medicaments and biological substances; Z91.018 Allergy to other foods; Z91.09 Other allergy status, other than to drugs and biological substances; G43.909 Migraine, unspecified, not intractable, without status migrainosus; F32.9 Major depressive disorder, single episode, unspecified
CPT/HCPCS: 47562; S2900; 81025; 88304

== ENCOUNTER → 2019-03-21 | Outpatient (CLI) | payer OTHER ==
--- NOTE | 2019-03-21 14:09 | MR ---
EXAMINATION TYPE: MR angio head wo con DATE OF EXAM: 03/21/2019 COMPARISON: 03/28/2018 HISTORY: GANN, Abn MRA head TECHNIQUE: Time of flight images focusing on the [place] of [place] were performed without contrast.. 2-D and 3-D postprocessing imaging is performed. 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 Otherwise the post erior circulation is intact and unremarkable. 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 This is unchanged from the prior. The remainder of the anterior circulation is unremarkable without aneurysmal formation, di ssection, or focal stenosis. 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
== END | disposition home or self-care (01) ==
LOC: RADMRIMAIN 11:26
PROVIDERS: ATTEND Psychiatry & Neurology Neurology
DX: I77.1 Stricture of artery (principal); R51 Headache
CPT/HCPCS: 70544

== ENCOUNTER → 2019-12-05 | Outpatient (CLI) | payer OTHER ==
[2019-12-05 16:41] LABS: INR 0.9 (<1.2); Partial Thromboplastin Time 23.8 sec (22.0-30.0); Prothrombin Time 9.5 sec (9.0-12.0)
[2019-12-05 16:44] LABS: HCT 39.7 % (34.0-46.0); HGB 12.7 gm/dL (11.4-16.0); MCH 27.1 pg (25.0-35.0); MCHC 32.1 g/dL (31.0-37.0); MCV 84.5 fL (80.0-100.0); Mean Platelet Volume 7.9; Platelet Count 341 k/uL (150-450); RDW 14.3 % (11.5-15.5); WBC 9.7 k/uL (3.8-10.6)
[2019-12-06 01:36] LABS: % Iron Saturation 9.44 (12.00-45.00); African American GFR (CKD) 101.6 (60.0-200.0); Albumin 4.5 g/dL (3.80-4.90); Albumin/Globulin Ratio 2.05 (1.60-3.17); Anion Gap 13.1 mmol/L (4.00-12.00); BUN/Creat Ratio 13.33 Ratio (12.00-20.00); Calcium 9.3 mg/dL (8.7-10.3); Carbon Dioxide 22.9 mmol/L (21.6-31.8); Chol/HDL Ratio 5.12; Globulin 2.2 g/dL (1.6-3.3); LDL Cholesterol,Calculated 92.4 mg/dL (0.0-131.0); Non-African American GFR(CKD) 87.6 (60.0-200.0); Phosphorus 4.4 mg/dL (2.4-5.1); Potassium 4.5 mmol/L (3.5-5.5); Total Bilirubin 0.2 mg/dL (0.3-1.2); Total Protein 6.7 g/dL (6.2-8.2); VLDL Calculation 43.6 mg/dL (5.00-40.00)
[2019-12-06 01:43] LABS: Hemoglobin A1C 5.3 % (4.0-6.0)
[2019-12-06 01:44] LABS: Ferritin 92.2 ng/mL (10.0-291.0)
[2019-12-06 13:02] LABS: Zinc, Serum 66 ug/dL (60-130)
[2019-12-07 07:21] LABS: Vitamin A 62 ug/dL (38-106)
[2019-12-08 01:06] LABS: Selenium 92 mcg/L (63-160)
[2019-12-08 09:17] LABS: Vit B1(Thiamine) 92 ug/L (38-122)
== END ==
LOC: LABWHC1 15:21
PROVIDERS: ATTEND Surgery Plastic and Reconstructive Surgery
DX: Z01.818 Encounter for other preprocedural examination (principal); Z01.812 Encounter for preprocedural laboratory examination; E66.01 Morbid (severe) obesity due to excess calories; E21.1 Secondary hyperparathyroidism, not elsewhere classified; E89.1 Postprocedural hypoinsulinemia; D50.9 Iron deficiency anemia, unspecified; E44.0 Moderate protein-calorie malnutrition; E55.9 Vitamin D deficiency, unspecified; K74.1 Hepatic sclerosis; N19 Unspecified kidney failure; K50.90 Crohn's disease, unspecified, without complications
CPT/HCPCS: 36415; 80053; 80061; 82306; 82525; 82607; 82728; 82746; 83036; 83540; 83550; 83735; 83970; 84100; 84134; 84255; 84425; 84443; 84590; 84630; 85027; 85610; 85730; 93005

== ENCOUNTER → 2019-12-05 | Outpatient (CLI) | payer OTHER ==
--- NOTE | 2019-12-05 14:40 | P.HPBAR ---
Bariatric H&P - History & Physicial H&P Date: 12/05/19 History & Physicial: Visit/CC: Patient initial contact: Initial weight: Initial weight in pounds: Height: Initial BMI: Last weight: Current weight: Current weight in pounds: Current BMI: Colt body weight (based on NIH guidelines): Excess body weight loss: The patient is a 29 year-old F who presents for Bariatric Assessment. HPI: She is looking into the sleeve gastrectomy. She reports reflux. Highest weight 293 pounds. She has tried medical supervised weight loss for weight loss including diuretics. She reports lower back pain with scoliosis. No hip pain. She has left knee pain. No ankle pain or foot pain. She comes in with high blood pressure taking flaxseed. She comes with chronic fatigue. No prior testing for sleep apnea. She reports family history of weight issues in her mother. No family colon cancer. Only leukemia and breast cancer. No PEs. No family history of blood clots, possibly in her mother. She reports chronic constipation from her father side. She reports abdominal pain. Gallbladder is removed. PLAN: 1. [facility] [place] [facility] 2. Recommend CT abd pelvis for kidney stones and right sided abdominal pain. Past Medical History Past Medical History: Hypertension, Neurologic Disorder Additional Past Medical History / Comment(s): , HTN UNDER CONTROL AT THIS TIME, migraine, GALLBLADDER DISORDER History of Any Multi-Drug Resistant Organisms: None Reported Past Surgical History: No Surgical Hx Reported, Cholecystectomy Additional Past Surgical History / Comment(s): EGD Past Anesthesia/Blood Transfusion Reactions: No Reported Reaction Past Psychological History: Depression Smoking Status: Former smoker - Past Family History Mother Family Medical History: Cancer Bariatric Checklist Checklist: Plan: Checklist: EGD: 1. Hiatal hernia: 2. H. Pylori: HgbA1c: Vitamin D: Smoking: Former smoker Primary care physician referral: Psychiatry clearance: Cardiology clearance: Sleep study: Diet journal: VTE risk score: VTE risk level: Rehab needs at discharge:
[2019-12-05 14:57] VITALS: BP 153/91; PULSE 83; TEMP 98.1; BMI 51.1
== END ==
LOC: BARWHC3 13:45
PROVIDERS: ATTEND Surgery Plastic and Reconstructive Surgery
DX: K21.9 Gastro-esophageal reflux disease without esophagitis (principal); M54.5 Low back pain; M41.9 Scoliosis, unspecified; M25.562 Pain in left knee; I10 Essential (primary) hypertension; R10.9 Unspecified abdominal pain; R53.82 Chronic fatigue, unspecified; Z87.891 Personal history of nicotine dependence; Z90.49 Acquired absence of other specified parts of digestive tract
CPT/HCPCS: 99211

== ENCOUNTER → 2019-12-15 | Outpatient (CLI) | payer OTHER ==
--- NOTE | 2019-12-16 14:34 | CT ---
EXAMINATION TYPE: CT abdomen pelvis w con DATE OF EXAM: 12/15/2019 COMPARISON: 03/23/2017 INDICATION: diverticulitis, Rt flank pain DLP: 2344.2 mGycm, Automated exposure control for dose reduction was used. CONTRAST: 100 mL of Isovue 300. Study performed with Oral Contrast TECHNIQUE: Axial images were obtained from above the diaphragm to the pubic rami in the axial plane a t 5 mm thick sections. Reconstructed images are reviewed on the computer in the coronal plane. FINDINGS: Limited CT sections are obtained the lung bases. The lung bases are clear. CT ABDOMEN: Liver: Normal Spleen: Normal Pancreas: Normal Adrenal glands: The adrenal glands are normal. Gallbladder: Normal Kidneys: No masses are evident. No hydronephrosis is present. No hydroureter is evident. No cysts ar e present. Delayed images were obtained through the kidneys, which remain unremarkable. Aorta: Vascular calcification is within the aorta. Inferior vena cava: Normal. CT PELVIS: Loops of bowel within the abdomen and pelvis are normal. There are loops of bowel which are incom pletely distended or lack oral contrast limiting their evaluation. Fecal debris is within the distal colon. No significant diverticulosis is present. No inflammatory changes to suggest acute diverticuli tis is evident. Appendix: Normal as visualized. Urinary bladder: Normal. Genitourinary structures: Uterus and adnexal regions are normal Osseous structures: No suspicious lytic or sclerotic lesions. IMPRESSIONS: 1. No suspicious abnormality to account for right flank pain
== END | disposition home or self-care (01) ==
LOC: RADCTMAIN 09:46
PROVIDERS: ATTEND Surgery Plastic and Reconstructive Surgery
DX: K57.92 Diverticulitis of intestine, part unspecified, without perforation or abscess without bleeding (principal); R10.9 Unspecified abdominal pain; Z88.8 Allergy status to other drugs, medicaments and biological substances; Z91.048 Other nonmedicinal substance allergy status
CPT/HCPCS: 74177; Q9967

== ENCOUNTER 2019-12-28 12:57 | Emergency (ER) | payer OTHER ==
[2019-12-28 13:10] VITALS: TEMP 98.2
[2019-12-28] MEDS ORDERED: SODIUM CHLORIDE 0.9% 500 ML 500 ML IV STA (13:20)
[2019-12-28] MEDS ORDERED: ONDANSETRON 4 MG/2 ML VIAL IVP STA (13:20)
[2019-12-28] MEDS ORDERED: KETOROLAC 30 MG/ML 1 ML VIAL IVP STA (13:20)
[2019-12-28] MEDS ORDERED: SODIUM CHLORIDE 0.9% 1,000 ML IV STA (13:20)
[2019-12-28 13:47] LABS: Basophils # (A) 0.1 k/uL (0-0.2); Basophils % (A) 1 %; Eosinophils # (A) 0.3 k/uL (0-0.7); Eosinophils % (A) 3 %; HCT 41.4 % (34.0-46.0); HGB 13.5 gm/dL (11.4-16.0); Lymphocytes # (A) 2.3 k/uL (1.0-4.8); Lymphocytes % (A) 22 %; MCH 27.5 pg (25.0-35.0); MCHC 32.5 g/dL (31.0-37.0); MCV 84.8 fL (80.0-100.0); Mean Platelet Volume 7.8; Monocytes # (A) 0.5 k/uL (0-1.0); Monocytes % (A) 4 %; Neutrophils # (A) 7.4 k/uL (1.3-7.7); Neutrophils % (A) 70 %; Platelet Count 341 k/uL (150-450); RBC 4.89 m/uL (3.80-5.40); RDW 14.6 % (11.5-15.5); WBC 10.6 k/uL (3.8-10.6)
[2019-12-28 13:52] LABS: Appearance,Urine Cloudy (Clear); Bacteria,Urine Rare /hpf; Bilirubin,Urine Negative (Negative); Blood,Urine Large (Negative); Color,Urine Yellow; Glucose,Urine (UA) Negative (Negative); Ketones,Urine Negative (Negative); Leukocyte Esterase,Urine Large (Negative); Mucus,Urine Many /hpf; Nitrite,Urine Negative (Negative); Protein,Urine 1+ (Negative); RBC,Urine >182 /hpf (0-5); Squamous Epithelial Cell,Urine 6 /hpf (0-4); Urobilinogen,Urine <2.0 mg/dL (<2.0); WBC,Urine >182 /hpf (0-5)
[2019-12-28 13:57] LABS: ALT 20 U/L (4-34); AST 28 U/L (14-36); African American GFR (CKD) >90 (>60 ml/min/1.73 sqM); Albumin 4.3 g/dL (3.5-5.0); Alkaline Phosphatase 38 U/L (38-126); Amylase 49 U/L (30-110); Anion Gap 11 mmol/L; Blood Urea Nitrogen 10 mg/dL (7-17); Calcium 9.8 mg/dL (8.4-10.2); Carbon Dioxide 22 mmol/L (22-30); Chloride 108 mmol/L (98-107); Glucose 82 mg/dL (74-99); Non-African American GFR(CKD) >90 (>60 ml/min/1.73 sqM); Potassium 4.6 mmol/L (3.5-5.1); Sodium 141 mmol/L (137-145); Total Bilirubin 0.4 mg/dL (0.2-1.3); Total Protein 7.8 g/dL (6.3-8.2)
[2019-12-28] MEDS ORDERED: cefTRIAXone IN SWFI 1,000 MG/10 ML SYRINGE IVP STA (13:57)
--- NOTE | 2019-12-28 14:10 | ED ---
Abdominal Pain HPI - General Chief Complaint: Abdominal Pain Stated Complaint: poss appendicitis Time Seen by Provider: 12/28/19 13:15 Source: patient, RN notes reviewed Mode of arrival: ambulatory Limitations: no limitations - History of Present Illness Initial Comments: This a 29-year-old female presents emergency department tingling right lower quadrant abdominal pain. Patient states that pain started increasing last couple days. She's had associated nausea constipation. Patient denies any known fevers or chills. Patient had a prior cholecystomy by Dr. Reyes. Patient and eyes any chance no noted hematuria no history kidney stone she has had a history of pyelonephritis she has mild dysuria - Related Data Previous Rx's Medication Instructions Recorded Cephalexin [Keflex] 500 mg PO Q8HR #21 cap 12/28/19 Ondansetron Odt [Zofran Odt] 4 mg PO Q8HR PRN #14 tab 12/28/19 Allergies Allergy/AdvReac Type Severity Reaction Status Date / Time cetirizine HCl [From Zyrtec] Allergy Unknown Rash/Hives Verified 12/28/19 13:09 adhesive Allergy Rash/Hives Verified 12/28/19 13:09 benzoyl peroxide Allergy Rash/Hives Verified 12/28/19 13:09 العر[place] Allergy Rash/Hives Verified 12/28/19 13:09 SUN AdvReac Rash/Hives Uncoded 12/28/19 13:09 Review of Systems ROS Statement: Those systems with pertinent positive or pertinent negative responses have been documented in the HPI. ROS Other: All systems not noted in ROS Statement are negative. Past Medical History Past Medical History: Hypertension, Neurologic Disorder Additional Past Medical History / Comment(s): migraine headaches (believed to be idiopathic intracranial hypertension per neurologist) History of Any Multi-Drug Resistant Organisms: None Reported Past Surgical History: Cholecystectomy Additional Past Surgical History / Comment(s): EGD, sinus surgery Past Anesthesia/Blood Transfusion Reactions: No Reported Reaction Past Psychological History: Depression Smoking Status: Former smoker Past Alcohol Use History: None Reported Past Drug Use History: None Reported - Past Family History Father Additional Family Medical History / Comment(s): Patient's father is displaying symptoms of Parkinson's; his brother has been dx with the disorder Mother Family Medical History: Cancer Additional Family Medical History / Comment(s): breast cancer dx at age 61 General Exam Limitations: no limitations General appearance: alert, in no apparent distress Head exam: Present: atraumatic, normocephalic, normal inspection Neck exam: Present: normal inspection. Absent: tenderness, meningismus, lymphadenopathy Respiratory exam: Present: normal lung sounds bilaterally. Absent: respiratory distress, wheezes, rales, rhonchi, stridor Cardiovascular Exam: Present: regular rate, normal rhythm, normal heart sounds. Absent: systolic murmur, diastolic murmur, rubs, gallop, clicks GI/Abdominal exam: Present: soft, tenderness (Moderate right lower quadrant), normal bowel sounds. Absent: distended, guarding, rebound, rigid Back exam: Absent: CVA tenderness (R), CVA tenderness (L) Neurological exam: Present: alert, oriented X3, CN II-XII intact Skin exam: Present: warm, dry, intact, normal color. Absent: rash Course Vital Signs 12/28/19 13:06 Temperature 98.2 F Pulse Rate 89 Respiratory 16 Rate Blood Pressure 153/90 O2 Sat by Pulse 100 Oximetry Medical Decision Making - Medical Decision Making 29-year-old presented for right-sided abdominal pain. Patient's found to have urinary tract infection, ovarian cyst. Patient was given Rocephin will be discharged with Keflex. Patient also given Zofran,,tylenol codeine. - Lab Data Result diagrams: 12/28/19 13:30 12/28/19 13:30 Lab Results 12/28/19 12/28/19 12/28/19 Range/Units 13:30 13:30 13:30 WBC 10.6 (3.8-10.6) k/uL RBC 4.89 (3.80-5.40) m/uL Hgb 13.5 (11.4-16.0) gm/dL Hct 41.4 (34.0-46.0) % MCV 84.8 (80.0-100.0) fL MCH 27.5 (25.0-35.0) pg MCHC 32.5 (31.0-37.0) g/dL RDW 14.6 (11.5-15.5) % Plt Count 341 (150-450) k/uL Neutrophils % 70 % Lymphocytes % 22 % Monocytes % 4 % Eosinophils % 3 % Basophils % 1 % Neutrophils # 7.4 (1.3-7.7) k/uL Lymphocytes # 2.3 (1.0-4.8) k/uL Monocytes # 0.5 (0-1.0) k/uL Eosinophils # 0.3 (0-0.7) k/uL Basophils # 0.1 (0-0.2) k/uL Sodium (137-145) mmol/L Potassium (3.5-5.1) mmol/L Chloride (98-107) mmol/L Carbon Dioxide (22-30) mmol/L Anion Gap mmol/L BUN (7-17) mg/dL Creatinine (0.52-1.04) mg/dL Est GFR (CKD-EPI)AfAm (>60 ml/min/1.73 sqM) Est GFR (CKD-EPI)NonAf (>60 ml/min/1.73 sqM) Glucose (74-99) mg/dL Plasma Lactic Acid Martinez (0.7-2.0) mmol/L Calcium (8.4-10.2) mg/dL Total Bilirubin (0.2-1.3) mg/dL AST (14-36) U/L ALT (4-34) U/L Alkaline Phosphatase (38-126) U/L Total Protein (6.3-8.2) g/dL Albumin (3.5-5.0) g/dL Amylase (30-110) U/L Lipase (23-300) U/L Urine Color Yellow Urine Appearance Cloudy H (Clear) Urine pH 6.0 (5.0-8.0) Ur Specific [place] 1.020 (1.001-1.035) Urine Protein 1+ H (Negative) Urine Glucose (UA) Negative (Negative) Urine Ketones Negative (Negative) Urine Blood Large H (Negative) Urine Nitrite Negative (Negative) Urine Bilirubin Negative (Negative) Urine Urobilinogen <2.0 (<2.0) mg/dL Ur Leukocyte Esterase Large H (Negative) Urine RBC >182 H (0-5) /hpf Urine WBC >182 H (0-5) /hpf Ur Squamous Epith Cells 6 H (0-4) /hpf Urine Bacteria Rare H (None) /hpf Urine Mucus Many H (None) /hpf Urine HCG, Qual Not Detected (Not Detectd) 12/28/19 12/28/19 Range/Units 13:30 13:30 WBC (3.8-10.6) k/uL RBC (3.80-5.40) m/uL Hgb (11.4-16.0) gm/dL Hct (34.0-46.0) % MCV (80.0-100.0) fL MCH (25.0-35.0) pg MCHC (31.0-37.0) g/dL RDW (11.5-15.5) % Plt Count (150-450) k/uL Neutrophils % % Lymphocytes % % Monocytes % % Eosinophils % % Basophils % % Neutrophils # (1.3-7.7) k/uL Lymphocytes # (1.0-4.8) k/uL Monocytes # (0-1.0) k/uL Eosinophils # (0-0.7) k/uL Basophils # (0-0.2) k/uL Sodium 141 (137-145) mmol/L Potassium 4.6 (3.5-5.1) mmol/L Chloride 108 H (98-107) mmol/L Carbon Dioxide 22 (22-30) mmol/L Anion Gap 11 mmol/L BUN 10 (7-17) mg/dL Creatinine 0.71 (0.52-1.04) mg/dL Est GFR (CKD-EPI)AfAm >90 (>60 ml/min/1.73 sqM) Est GFR (CKD-EPI)NonAf >90 (>60 ml/min/1.73 sqM) Glucose 82 (74-99) mg/dL Plasma Lactic Acid Martinez 1.1 (0.7-2.0) mmol/L Calcium 9.8 (8.4-10.2) mg/dL Total Bilirubin 0.4 (0.2-1.3) mg/dL AST 28 (14-36) U/L ALT 20 (4-34) U/L Alkaline Phosphatase 38 (38-126) U/L Total Protein 7.8 (6.3-8.2) g/dL Albumin 4.3 (3.5-5.0) g/dL Amylase 49 (30-110) U/L Lipase 66 (23-300) U/L Urine Color Urine Appearance (Clear) Urine pH (5.0-8.0) Ur Specific [place] (1.001-1.035) Urine Protein (Negative) Urine Glucose (UA) (Negative) Urine Ketones (Negative) Urine Blood (Negative) Urine Nitrite (Negative) Urine Bilirubin (Negative) Urine Urobilinogen (<2.0) mg/dL Ur Leukocyte Esterase (Negative) Urine RBC (0-5) /hpf Urine WBC (0-5) /hpf Ur Squamous Epith Cells (0-4) /hpf Urine Bacteria (None) /hpf Urine Mucus (None) /hpf Urine HCG, Qual (Not Detectd) Disposition Clinical Impression: Abdominal pain, UTI (urinary tract infection), Ovarian cyst Disposition: HOME SELF-CARE Condition: Stable Instructions (If sedation given, give patient instructions): Urinary Tract Infection in Women (ED) Additional Instructions: Please return to the Emergency Department if symptoms worsen or any other concerns. Prescriptions: Cephalexin [Keflex] 500 mg PO Q8HR #21 cap Ondansetron Odt [Zofran Odt] 4 mg PO Q8HR PRN #14 tab PRN Reason: Nausea Is patient prescribed a controlled substance at d/c from ED?: No Referrals: Jolie Bedoya DO [Primary Care Provider] - 1-2 days Time of Disposition: 15:01
--- NOTE | 2019-12-28 14:44 | CT ---
EXAMINATION TYPE: CT abdomen pelvis w con DATE OF EXAM: 12/28/2019 COMPARISON: Prior CT 12/15/2019 approximately 2 weeks prior HISTORY: Right lower quadrant pain CT DLP: 2200.5 mGycm Automated exposure control for dose reduction was used. TECHNIQUE: Helical acquisition of images from the lung bases through the pelvis have been completed. CONTRAST: Performed without Oral Contrast and with IV Contrast, patient injected with 100 mL of Isovue 300. FINDINGS: LUNG BASES: No significant abnormality is appreciated. AORTA: No significant abnormality is appreciated. LIVER/GB: No significant interval change is appreciated. PANCREAS: No significant abnormality is seen. SPLEEN: No significant abnormality is seen. ADRENALS: No significant abnormality is seen. KIDNEYS: Punctate nonobstructive calcification present in the mid kidney.. REPRODUCTIVE ORGANS: There is some low attenuation which is developed at the level of the right ovary , is more conspicuous as compared to prior exam suggesting ovarian cyst measuring approximately 2.6 c m, uterus and left ovary show no interval change. BOWEL: No significant abnormality is seen. The appendix shows a small focus of calcification likely representing an appendicolith on axial image 64, no inflammatory change, luminal air present within t he appendix FREE AIR: No Free Air visible. ASCITES: None visible. PELVIC ADENOPATHY: None visualized. RETROPERITONEAL ADENOPATHY: No Retroperitoneal Adenopathy visible. URINARY BLADDER: No significant abnormality is seen. OSSEOUS STRUCTURES: Degenerative disc change present at the lumbosacral junction. IMPRESSION: PROBABLE RIGHT OVARIAN CYST. NO EVIDENT APPENDICITIS. ADDITIONAL FINDINGS ABOVE.
[2019-12-28] MEDS ORDERED: ACET/COD 300 MG/30 MG STARTER PACK 6 TAB BTL PO STA (14:57)
[2019-12-28 15:21] VITALS: RESP 20
[2019-12-28 15:22] VITALS: BP 137/98; PULSE 81
== END 2019-12-28 15:36 | disposition home or self-care (01) ==
LOC: EC 12:57
DX: N39.0 Urinary tract infection, site not specified (principal); N83.201 Unspecified ovarian cyst, right side; I10 Essential (primary) hypertension; Z88.3 Allergy status to other anti-infective agents; Z88.8 Allergy status to other drugs, medicaments and biological substances; Z91.048 Other nonmedicinal substance allergy status; Z91.018 Allergy to other foods; Z87.891 Personal history of nicotine dependence; Z90.49 Acquired absence of other specified parts of digestive tract
CPT/HCPCS: 36415; 80053; 82150; 83605; 83690; 85025; 81001; 81025; 87086; 74177; 99284; 96374; 96375 ×2; 96361; J2405; J0696; J1885; Q9967

== ENCOUNTER 2021-10-01 21:46 | Emergency (ER) | payer OTHER ==
[2021-10-01] MEDS ORDERED: KETOROLAC 15 MG/ML 1 ML VIAL IVP STA (21:51)
[2021-10-01] MEDS ORDERED: SODIUM CHLORIDE 0.9% 1,000 ML IV STA (21:51)
[2021-10-01] MEDS ORDERED: MORPHINE SULFATE 4 MG/ML SYRINGE IV STA (21:51)
[2021-10-01 21:54] VITALS: RESP 18
--- NOTE | 2021-10-01 22:08 | ED ---
Abdominal Pain HPI - General Chief Complaint: Abdominal Pain Stated Complaint: Flank Pain Time Seen by Provider: 10/01/21 21:49 Source: patient, EMS, RN notes reviewed, old records reviewed Mode of arrival: EMS Limitations: no limitations - History of Present Illness Initial Comments: This is a 31-year-old female fevers or today. Patient Dese for evaluation of flank pain severe flank pain right-sided flank pain radiating to groin. Patient also with fever and chills. Flank pain is severe does have history of kidney stones. MD Complaint: abdominal pain, flank pain (Right-sided) -: days(s) Location: RLQ, suprapubic Radiation: R flank Severity: moderate Severity scale (1-10): 7 Consistency: constant Improves With: nothing Worsens With: nothing Associated Symptoms: nausea Treatments Prior to Arrival: other (none) - Related Data Home Medications Medication Instructions Recorded Confirmed Multivitamins, Thera [Multivitamin 1 tab PO DAILY 10/01/21 10/01/21 (formulary)] Allergies Allergy/AdvReac Type Severity Reaction Status Date / Time cetirizine HCl [From Zyrtec] Allergy Unknown Rash/Hives Verified 10/01/21 23:31 adhesive Allergy Rash/Hives Verified 10/01/21 23:31 benzoyl peroxide Allergy Rash/Hives Verified 10/01/21 23:31 العر[place] Allergy Rash/Hives Verified 10/01/21 23:31 SUN AdvReac Rash/Hives Uncoded 10/01/21 23:31 Review of Systems ROS Statement: Those systems with pertinent positive or pertinent negative responses have been documented in the HPI. ROS Other: All systems not noted in ROS Statement are negative. Past Medical History Past Medical History: Hypertension, Neurologic Disorder Additional Past Medical History / Comment(s): migraine headaches (believed to be idiopathic intracranial hypertension per neurologist) History of Any Multi-Drug Resistant Organisms: None Reported Past Surgical History: Cholecystectomy Additional Past Surgical History / Comment(s): EGD, sinus surgery Past Anesthesia/Blood Transfusion Reactions: No Reported Reaction Past Psychological History: Depression Smoking Status: Never smoker Past Alcohol Use History: None Reported Past Drug Use History: None Reported - Past Family History Father Additional Family Medical History / Comment(s): Patient's father is displaying symptoms of Parkinson's; his brother has been dx with the disorder Mother Family Medical History: Cancer Additional Family Medical History / Comment(s): breast cancer dx at age 61 General Exam Limitations: no limitations General appearance: anxious Head exam: Present: atraumatic, normocephalic, normal inspection Eye exam: Present: normal appearance, PERRL, EOMI. Absent: scleral icterus, conjunctival injection, periorbital swelling ENT exam: Present: normal exam, mucous membranes moist Neck exam: Present: normal inspection. Absent: tenderness, meningismus, lymphadenopathy Respiratory exam: Present: normal lung sounds bilaterally. Absent: respiratory distress, wheezes, rales, rhonchi, stridor Cardiovascular Exam: Present: regular rate, normal rhythm, normal heart sounds. Absent: systolic murmur, diastolic murmur, rubs, gallop, clicks GI/Abdominal exam: Present: soft, normal bowel sounds. Absent: distended, tenderness, guarding, rebound, rigid Extremities exam: Present: normal inspection, full ROM, normal capillary refill. Absent: tenderness, pedal edema, joint swelling, calf tenderness Back exam: Present: normal inspection Neurological exam: Present: alert, oriented X3, CN II-XII intact Psychiatric exam: Present: normal affect, normal mood Skin exam: Present: warm, dry, intact, normal color. Absent: rash Course Vital Signs 10/01/21 10/01/21 10/01/21 21:47 21:54 23:44 Temperature 100.6 F H 98.6 F Pulse Rate 95 85 Respiratory 18 18 Rate Blood Pressure 147/100 140/82 O2 Sat by Pulse 95 97 Oximetry - Reevaluation(s) Reevaluation #1: 10/02/21 00:53 Medical record is reviewed Reevaluation #2: 10/02/21 00:54 Patient informed results, questions answered, patient would like antibodies Medical Decision Making - Medical Decision Making 31 female to the emergency department for evaluation with positive coronavirus. No pneumonia on x-ray, patient given antibiotics and can be discharged home - Lab Data Result diagrams: 10/01/21 22:00 10/01/21 22:00 Lab Results 10/01/21 10/01/21 10/01/21 Range/Units 22:00 22:00 22:00 WBC 5.3 (3.8-10.6) k/uL RBC 4.75 (3.80-5.40) m/uL Hgb 13.9 (11.4-16.0) gm/dL Hct 41.9 (34.0-46.0) % MCV 88.2 (80.0-100.0) fL MCH 29.3 (25.0-35.0) pg MCHC 33.2 (31.0-37.0) g/dL RDW 13.8 (11.5-15.5) % Plt Count 258 (150-450) k/uL MPV 7.5 Neutrophils % 57 % Lymphocytes % 34 % Monocytes % 6 % Eosinophils % 1 % Basophils % 1 % Neutrophils # 3.0 (1.3-7.7) k/uL Lymphocytes # 1.8 (1.0-4.8) k/uL Monocytes # 0.3 (0-1.0) k/uL Eosinophils # 0.0 (0-0.7) k/uL Basophils # 0.0 (0-0.2) k/uL Sodium (137-145) mmol/L Potassium (3.5-5.1) mmol/L Chloride (98-107) mmol/L Carbon Dioxide (22-30) mmol/L Anion Gap mmol/L BUN (7-17) mg/dL Creatinine (0.52-1.04) mg/dL Est GFR (CKD-EPI)AfAm (>60 ml/min/1.73 sqM) Est GFR (CKD-EPI)NonAf (>60 ml/min/1.73 sqM) Glucose (74-99) mg/dL Calcium (8.4-10.2) mg/dL Total Bilirubin (0.2-1.3) mg/dL AST (14-36) U/L ALT (4-34) U/L Alkaline Phosphatase (38-126) U/L Lactate Dehydrogenase (313-618) U/L C-Reactive Protein (<1.0) mg/dL Total Protein (6.3-8.2) g/dL Albumin (3.5-5.0) g/dL Amylase (30-110) U/L Lipase (23-300) U/L Urine Color Yellow Urine Appearance Cloudy H (Clear) Urine pH 6.0 (5.0-8.0) Ur Specific [place] 1.013 (1.001-1.035) Urine Protein Trace H (Negative) Urine Glucose (UA) Negative (Negative) Urine Ketones 1+ H (Negative) Urine Blood Trace H (Negative) Urine Nitrite Negative (Negative) Urine Bilirubin Negative (Negative) Urine Urobilinogen <2.0 (<2.0) mg/dL Ur Leukocyte Esterase Moderate H (Negative) Urine RBC 2 (0-5) /hpf Urine WBC 9 H (0-5) /hpf Ur Squamous Epith Cells 18 H (0-4) /hpf Amorphous Sediment Rare H (None) /hpf Urine Bacteria Rare H (None) /hpf Hyaline Casts 27 H (0-2) /lpf Urine Mucus Few H (None) /hpf Urine HCG, Qual Not Detected (Not Detectd) Coronavirus (PCR) (Not Detectd) 10/01/21 10/01/21 10/02/21 Range/Units 22:00 22:21 00:10 WBC (3.8-10.6) k/uL RBC (3.80-5.40) m/uL Hgb (11.4-16.0) gm/dL Hct (34.0-46.0) % MCV (80.0-100.0) fL MCH (25.0-35.0) pg MCHC (31.0-37.0) g/dL RDW (11.5-15.5) % Plt Count (150-450) k/uL MPV Neutrophils % % Lymphocytes % % Monocytes % % Eosinophils % % Basophils % % Neutrophils # (1.3-7.7) k/uL Lymphocytes # (1.0-4.8) k/uL Monocytes # (0-1.0) k/uL Eosinophils # (0-0.7) k/uL Basophils # (0-0.2) k/uL Sodium 135 L (137-145) mmol/L Potassium 3.4 L (3.5-5.1) mmol/L Chloride 100 (98-107) mmol/L Carbon Dioxide 23 (22-30) mmol/L Anion Gap 12 mmol/L BUN 9 (7-17) mg/dL Creatinine 0.77 (0.52-1.04) mg/dL Est GFR (CKD-EPI)AfAm >90 (>60 ml/min/1.73 sqM) Est GFR (CKD-EPI)NonAf >90 (>60 ml/min/1.73 sqM) Glucose 94 (74-99) mg/dL Calcium 8.8 (8.4-10.2) mg/dL Total Bilirubin 0.4 (0.2-1.3) mg/dL AST 169 H (14-36) U/L ALT 138 H (4-34) U/L Alkaline Phosphatase 36 L (38-126) U/L Lactate Dehydrogenase 722 H (313-618) U/L C-Reactive Protein 1.1 H (<1.0) mg/dL Total Protein 7.0 (6.3-8.2) g/dL Albumin 3.8 (3.5-5.0) g/dL Amylase 61 (30-110) U/L Lipase 108 (23-300) U/L Urine Color Urine Appearance (Clear) Urine pH (5.0-8.0) Ur Specific Reliance (1.001-1.035) Urine Protein (Negative) Urine Glucose (UA) (Negative) Urine Ketones (Negative) Urine Blood (Negative) Urine Nitrite (Negative) Urine Bilirubin (Negative) Urine Urobilinogen (<2.0) mg/dL Ur Leukocyte Esterase (Negative) Urine RBC (0-5) /hpf Urine WBC (0-5) /hpf Ur Squamous Epith Cells (0-4) /hpf Amorphous Sediment (None) /hpf Urine Bacteria (None) /hpf Hyaline Casts (0-2) /lpf Urine Mucus (None) /hpf Urine HCG, Qual (Not Detectd) Coronavirus (PCR) Detected A (Not Detectd) - Radiology Data Radiology results: report reviewed (Chest x-ray CT abdomen and pelvis negative for acute disease), image reviewed Disposition Clinical Impression: Abdominal pain, Coronavirus infection Disposition: HOME SELF-CARE Condition: Fair Is patient prescribed a controlled substance at d/c from ED?: No Referrals: Jolie Bedoya DO [Primary Care Provider] - 1-2 days
[2021-10-01] MEDS ORDERED: ACETAMINOPHEN TAB 500 MG TAB PO STA (22:18)
[2021-10-01 22:29] LABS: Basophils % (A) 1 %; Eosinophils % (A) 1 %; HCT 41.9 % (34.0-46.0); HGB 13.9 gm/dL (11.4-16.0); Lymphocytes # (A) 1.8 k/uL (1.0-4.8); Lymphocytes % (A) 34 %; MCH 29.3 pg (25.0-35.0); MCHC 33.2 g/dL (31.0-37.0); MCV 88.2 fL (80.0-100.0); Mean Platelet Volume 7.5; Monocytes # (A) 0.3 k/uL (0-1.0); Monocytes % (A) 6 %; Neutrophils % (A) 57 %; Platelet Count 258 k/uL (150-450); RBC 4.75 m/uL (3.80-5.40); RDW 13.8 % (11.5-15.5); WBC 5.3 k/uL (3.8-10.6)
[2021-10-01 22:39] LABS: Amorphous Sediment,Urine Rare /hpf; Appearance,Urine Cloudy (Clear); Bacteria,Urine Rare /hpf; Bilirubin,Urine Negative (Negative); Blood,Urine Trace (Negative); Color,Urine Yellow; Glucose,Urine (UA) Negative (Negative); Hyaline Casts,Urine 27 /lpf (0-2); Ketones,Urine 1+ (Negative); Leukocyte Esterase,Urine Moderate (Negative); Mucus,Urine Few /hpf; Nitrite,Urine Negative (Negative); Protein,Urine Trace (Negative); RBC,Urine 2 /hpf (0-5); Specific Gravity,Urine 1.013 (1.001-1.035); Squamous Epithelial Cell,Urine 18 /hpf (0-4); Urobilinogen,Urine <2.0 mg/dL (<2.0); WBC,Urine 9 /hpf (0-5)
[2021-10-01 22:44] LABS: ALT 138 U/L (4-34); AST 169 U/L (14-36); African American GFR (CKD) >90 (>60 ml/min/1.73 sqM); Albumin 3.8 g/dL (3.5-5.0); Alkaline Phosphatase 36 U/L (38-126); Amylase 61 U/L (30-110); Anion Gap 12 mmol/L; Blood Urea Nitrogen 9 mg/dL (7-17); Calcium 8.8 mg/dL (8.4-10.2); Carbon Dioxide 23 mmol/L (22-30); Chloride 100 mmol/L (98-107); Glucose 94 mg/dL (74-99); Lipase 108 U/L (23-300); Non-African American GFR(CKD) >90 (>60 ml/min/1.73 sqM); Potassium 3.4 mmol/L (3.5-5.1); Sodium 135 mmol/L (137-145); Total Bilirubin 0.4 mg/dL (0.2-1.3)
[2021-10-01] MEDS ORDERED: ONDANSETRON 4 MG/2 ML VIAL IVP STA (22:58)
--- NOTE | 2021-10-01 23:16 | XR ---
EXAMINATION TYPE: XR chest 1V DATE OF EXAM: 10/01/2021 COMPARISON: 06/24/2018 HISTORY: Chest pain TECHNIQUE: Single view FINDINGS: Heart and mediastinum are normal. Lungs are clear of consolidation. There is rounded 7 mm d ensity lateral right lung field that is probably a granuloma. The diaphragm is normal. Bony thorax is intact. IMPRESSION: No active cardiopulmonary disease. Normal heart.
--- NOTE | 2021-10-01 23:27 | CT ---
EXAMINATION TYPE: CT abdomen pelvis wo con DATE OF EXAM: 10/01/2021 COMPARISON: 12/28/2019 HISTORY: right flank pain. CT DLP: 1682 mGycm Automated exposure control for dose reduction was used. Images obtained from the diaphragm to the floor the pelvis without contrast. There is some patchy peripheral nodular infiltrates in the posterior lung chawla mainly in the right lower lobe. Heart is borderline enlarged. There is no pericardial effusion. There is no pleural effus ion. Liver spleen stomach pancreas appear intact. The bile ducts are not dilated. There is no adrenal mass. Kidneys show normal size and contour. There is no hydronephrosis. Ureters a re not dilated. There is no retroperitoneal adenopathy. Urinary bladder is almost empty. There is no inguinal hernia. There is no pelvic mass. Uterus is anteverted. There is no free fluid in the pelvis. There is no mesenteric edema. There is no ascites or free air. There is no bowel obstruction. Appendi x is inferior and appears normal. The lumbar vertebra have normal alignment. There is no compression fracture. Disc spaces are fairly n ormal. Bony pelvis is intact. The hip joints are intact. IMPRESSION: There is some patchy peripheral pneumonia right lower lobe. d cardiomegaly. No acute abnormality within the abdomen pelvis. Normal appendix. Pneumonia appears ne w compared to old exam. No evidence of renal stone or obstruction.
[2021-10-01 23:32] LABS: C Reactive Protein 1.1 mg/dL (<1.0)
[2021-10-01 23:45] VITALS: TEMP 98.6
[2021-10-02 01:24] VITALS: BP 135/80; PULSE 86
== END 2021-10-02 01:32 | disposition home or self-care (01) ==
LOC: EC 21:46
DX: U07.1 COVID-19 (principal); R10.31 Right lower quadrant pain; I10 Essential (primary) hypertension
CPT/HCPCS: 36415; 80053; 82150; 83615; 83690; 85025; 86140; 81001; 81025; 87635; 71045; 74176; 99285; 96374; 96375 ×2; 96361; J2270; J2405; J1885

== ENCOUNTER → 2022-05-19 | Outpatient (CLI) | payer OTHER ==
--- NOTE | 2022-05-20 07:33 | US ---
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 3 palp rachel/areas of soft tissue posterior upper back/neck Technique: Associate Media Director notes: Scanning along areas of concern, mid posterior upper back, right optical laboratory mechanic ior neck and left posterior neck. No distinct abnormality by ultrasound at this time IMPRESSION: Targeted scanning along the patient's palpable areas mid posterior upper back, right posterior neck, and left posterior neck. No discrete sonographic abnormality of the superficial soft tissues.
== END | disposition home or self-care (01) ==
LOC: RADUSWWP 16:35
PROVIDERS: ATTEND Surgery Plastic and Reconstructive Surgery
DX: D49.2 Neoplasm of unspecified behavior of bone, soft tissue, and skin (principal)
CPT/HCPCS: 76536

== ENCOUNTER → 2022-05-26 | Outpatient (CLI) | payer OTHER ==
[2022-05-26 13:29] LABS: African American GFR (CKD) >90 (>60 ml/min/1.73 sqM); Blood Urea Nitrogen 12 mg/dL (7-17); Non-African American GFR(CKD) >90 (>60 ml/min/1.73 sqM)
--- NOTE | 2022-05-26 15:30 | CT ---
EXAMINATION TYPE: CT soft tissue neck w con CT DLP: 710.90 mGycm, Automated exposure control for dose reduction was used. DATE OF EXAM: 05/26/2022 2:10 PM COMPARISON: Thyroid ultrasound 05/19/2022, MR brain C-spine 03/28/2028. CLINICAL INDICATION:Female, 31 years old with history of D49.2 NEOPLASM OF UNSP BEHAVIOR OF BONE; PHH , Neoplasm of unspecified behavior of bone, soft tissue and skin. Pt states there are [address] Jeff Reyes may remove. Areas occipital region of head and back of neck... marked by BBs TECHNIQUE: Standard enhanced CT of the neck following intravenous administration of 100 cc of Isovue 300. Axial sections with coronal and sagittal reformats were obtained. FINDINGS: Brain: Visualized portions are grossly unremarkable. Orbits: Unremarkable Sinuses: Grossly unremarkable. Spaces of the neck: Clear and symmetric. Musculoskeletal: No acute osseous pathology. Lymph nodes: No pathologic adenopathy. Vascular structures: Visualized major arteries are patent without evidence of aneurysm. Thoracic Inlet/airway: Airway is patent. The lung apices are clear. Soft tissues/Thyroid: Subcentimeter hypodense nodule within the left thyroid lobe. No corresponding a bnormality to the patient's 3 palpable areas in the mid upper back and bilateral posterior neck. Other: none. IMPRESSION No definite evidence for abnormality at the patient's 3 palpable sites.
== END | disposition home or self-care (01) ==
LOC: RADCTMAIN 12:41
PROVIDERS: ATTEND Surgery Plastic and Reconstructive Surgery
DX: D49.2 Neoplasm of unspecified behavior of bone, soft tissue, and skin (principal)
CPT/HCPCS: 82565; 84520; 70491; 36415; Q9967

== ENCOUNTER → 2023-12-05 | Outpatient (CLI) | payer OTHER ==
[2023-12-05 13:10] LABS: INR 0.9 (<1.2); Partial Thromboplastin Time 23.3 sec (22.0-30.0); Prothrombin Time 10.2 sec (10.0-12.5)
[2023-12-05 13:48] LABS: Amphetamine Screen,Urine Not Detected (NotDetected); Barbiturate Screen,Urine Not Detected (NotDetected); Benzodiazepines Screen,Urine Not Detected (NotDetected); Cocaine Screen,Urine Not Detected (NotDetected); Methadone Screen, Urine Not Detected (NotDetected); Opiate Screen,Urine Not Detected (NotDetected); Oxycodone Screen, Urine Not Detected (NotDetected); Phencyclidine Screen,Urine Not Detected (NotDetected); Tricyclic Antidepressant,Urine Not Detected (NotDetected); Urn Cannabinoid Scrn Not Detected (NotDetected)
[2023-12-05 15:14] LABS: HCT 39.7 % (37.2-46.3); HGB 12.7 g/dL (12.0-15.0); MCH 27.3 pg (27.0-32.0); MCV 85.2 FL (80.0-97.0); Mean Platelet Volume 10.9 FL (9.5-12.2); NRBC Per 100 WBC 0 X 10*3/uL (0.00-0.01); Platelet Count 344 X 10*3/uL (140-440); RBC 4.66 X 10*6/uL (4.10-5.20); RDW 13.6 % (11.5-14.5); WBC 10.57 X 10*3/uL (4.50-10.00)
[2023-12-05 15:52] LABS: % Iron Saturation 9.26 (12.00-45.00); ALT 21 U/L (8-44); AST 21 U/L (13-35); Albumin 4.3 g/dL (3.8-4.9); Albumin/Globulin Ratio 1.48 Ratio (1.60-3.17); Alkaline Phosphatase 49 U/L (41-126); BUN/Creat Ratio 16.12 Ratio (12.00-20.00); Blood Urea Nitrogen 12.9 mg/dL (9.0-27.0); Calcium 9.7 mg/dL (8.7-10.3); Carbon Dioxide 21.5 mmol/L (21.6-31.8); Chloride 104 mmol/L (96-109); Chol/HDL Ratio 4.82 Ratio; Globulin 2.9 g/dL (1.6-3.3); Glucose 89 mg/dL (70-110); Iron 35 UG/DL (50-170); Magnesium 2.1 mg/dL (1.5-2.4); Phosphorus 4.2 mg/dL (2.4-5.1); Potassium 4.4 mmol/L (3.5-5.5); Sodium 140 mmol/L (135-145); Total Bilirubin 0.3 mg/dL (0.3-1.2); Total Iron Binding Capacity 378 UG/DL (228-460); Total Protein 7.2 g/dL (6.2-8.2)
[2023-12-06 11:33] LABS: Zinc, Serum 78 ug/dL (60-130)
[2023-12-07 11:53] LABS: Vit B1(Thiamine) 91 ug/L (38-122)
[2023-12-07 12:00] LABS: Vitamin A 56 ug/dL (38-106)
== END | disposition home or self-care (01) ==
LOC: LABWHC1 11:56
PROVIDERS: ATTEND Surgery Plastic and Reconstructive Surgery
DX: E66.01 Morbid (severe) obesity due to excess calories (principal); D50.8 Other iron deficiency anemias; E44.0 Moderate protein-calorie malnutrition; E55.9 Vitamin D deficiency, unspecified; K74.1 Hepatic sclerosis; E89.1 Postprocedural hypoinsulinemia; K91.2 Postsurgical malabsorption, not elsewhere classified; E44.1 Mild protein-calorie malnutrition; N19 Unspecified kidney failure; K50.90 Crohn's disease, unspecified, without complications; T56.894A Toxic effect of other metals, undetermined, initial encounter
CPT/HCPCS: 84255; 84134; 84425; 80061; 80053; 82607; 82728; 82525; 82746; 83540; 83550; 83735; 84100; 84443; 84590; 84630; 85027; 85610; 85730; 82306; 80306; 83970; 83036; 93005; 36415; G0480; 80323

== ENCOUNTER 2024-01-30 06:41 | Day surgery (SDC) | payer OTHER ==
[2024-01-26 15:03] VITALS: BMI 45.4
[~2024-01-30 06:41] MED LIST changes: -DEXAMETHASONE SOD PHOSPHATE 10 MG/ML 1 ML VIAL IV ONE; -HEPARIN SODIUM,PORCINE 5,000 UNIT/ML 1 ML VIAL SQ ONE; -INDOCYANINE GREEN 25 MG VIAL IV STA; -LACTATED RINGERS 1,000 ML IV SCH; +LIDOCAINE 1% (10MG/ML) FOR IV START INTRADERMA PRN; -LIDOCAINE 1% 20 ML VIAL (10MG/ML) FOR IV START INTRADERMA PRN; -MIDAZOLAM 2 MG/2 ML VIAL IV PRN
[2024-01-30] MEDS: LACTATED RINGERS 1,000 ML IV SCH (06:49)
[2024-01-30] MEDS: ONDANSETRON 4 MG/2 ML VIAL IVP ONE (07:22)
[2024-01-30] MEDS ORDERED: ONDANSETRON 4 MG/2 ML VIAL ONE (07:22)
[2024-01-30] MEDS ORDERED: LIDOCAINE 1% INJ 10MG/ML (20 ML MDV) ONE (07:27)
[2024-01-30] MEDS ORDERED: PROPOFOL 10 MG/ML 20 ML VIAL IV ONE (07:27)
[2024-01-30] MEDS ORDERED: MIDAZOLAM 2 MG/2 ML VIAL ONE (07:27)
--- NOTE | 2024-01-30 07:30 | P.GSHP ---
History of Present Illness H&P Date: 01/30/24 CHIEF COMPLAINT: GERD HISTORY OF PRESENT ILLNESS: The patient is a 33-year-old female who presents reports gastroesophageal reflux disease. Upper endoscopy was offered for further evaluation and management. PAST MEDICAL HISTORY: Please see list. PAST SURGICAL HISTORY: Please see list. MEDICATIONS: Please see list. ALLERGIES: Please see list. SOCIAL HISTORY: No illicit drug use FAMILY HISTORY: No reports of Crohn disease or ulcerative colitis. REVIEW OF ORGAN SYSTEMS: CONSTITUTIONAL: No reports of fevers or chills. GI: Denies any blood in stools or constipation. PHYSICAL EXAM: VITAL SIGNS: Stable GENERAL: Well-developed and pleasant in no acute distress. HEENT: No scleral icterus. Extraocular movements grossly intact. Moist buccal mucosa. NECK: Supple without lymphadenopathy. CHEST: Unlabored respirations. Equal bilateral excursions. CARDIOVASCULAR: Regular rate and rhythm. Distal 2+ pulses. ABDOMEN: Soft, nondistended. MUSCULOSKELETAL: No clubbing, cyanosis, or edema. ASSESSMENT: 1. Gastroesophageal reflux disease PLAN: 1. Recommend proceeding with an upper endoscopy Past Medical History Past Medical History: Hypertension, Neurologic Disorder Additional Past Medical History / Comment(s): migraine headaches (believed to be idiopathic intracranial hypertension per neurologist) History of Any Multi-Drug Resistant Organisms: None Reported Past Surgical History: Cholecystectomy Additional Past Surgical History / Comment(s): EGD, sinus surgery Past Anesthesia/Blood Transfusion Reactions: Postoperative Nausea & Vomiting (PONV) Past Psychological History: Depression, Panic Disorder Additional Psychological History / Comment(s): DEPRESSION UNDER CONTROL AT THIS TIME, suicide attempt and hospitalization 10 years ago Smoking Status: Former smoker Past Alcohol Use History: None Reported Additional Past Alcohol Use History / Comment(s): QUIT SMOKING AGE 21 Past Drug Use History: None Reported - Past Family History Father Additional Family Medical History / Comment(s): Patient's father is displaying symptoms of Parkinson's; his brother has been dx with the disorder Mother Family Medical History: Cancer Additional Family Medical History / Comment(s): breast cancer dx at age 61 Medications and Allergies Home Medications Medication Instructions Recorded Confirmed Type Medroxyprogesterone Acetate 150 mg IM DIRECTED 11/30/23 01/30/24 History [Depo-Provera] Allergies Allergy/AdvReac Type Severity Reaction Status Date / Time cetirizine HCl [From Zyrte] Allergy Unknown Rash/Hives Verified 01/30/24 07:02 adhesive Allergy Rash/Hives Verified 01/30/24 07:02 benzoyl peroxide Allergy Rash/Hives Verified 01/30/24 07:02 العراقي Allergy Rash/Hives Verified 01/30/24 07:02 SUN AdvReac Rash/Hives Uncoded 01/26/24 14:34 Surgical - Exam Vital Signs Temp Pulse Resp BP Pulse Ox 97.1 F L 64 20 163/94 97 01/30/24 07:04 01/30/24 07:04 01/30/24 07:04 01/30/24 07:04 01/30/24 07:04
[2024-01-30 07:40] VITALS: TEMP 97.1
--- NOTE | 2024-01-30 07:51 | P.PCN ---
Date of Procedure: 01/30/24 Description of Procedure: PREOPERATIVE DIAGNOSIS: Gastroesophageal reflux disease. Morbid obesity. POSTOPERATIVE DIAGNOSIS: Gastroesophageal reflux disease with erosive esophagitis Morbid obesity. Gastritis. Gastric ulcer OPERATION: Esophagogastroduodenoscopy with biopsies along esophagus, antrum and duodenum SURGEON: Ave Reyes MD ANESTHESIA: MAC. INDICATIONS: The patient is a 33-year-old female who presents with reflux disease. Benefits and risks of the procedure were described. Informed consent was obtained. DESCRIPTION: The patient was brought into the endoscopy suite and laid in the left lateral decubitus position. An Olympus gastroscope was passed along the posterior oropharynx down to the distal esophagus where the squamocolumnar junction was encountered at 36 cm from the incisors. The stomach was entered and no bile reflux was found. Additional findings are listed below. Biopsies with cold forceps were obtained of the antrum. The first through third portion of the duodenum was examined. Retroflexion of the scope confirmed Hill grade 2 lower esophageal valve. The squamocolumnar junction demonstrated LA grade B erosive esophagitis. The stomach was desufflated. The patient tolerated the procedure well. FINDINGS: Squamocolumnar junction 36 cm from the incisors. Diaphragmatic hiatus at 36 cm. Hill grade 2 lower esophageal valve. LA grade B erosive esophagitis. Biopsies obtained of the duodenum. Chronic gastritis with biopsies obtained. Acute gastric ulcer, 2 mm in antrum, biopsy RECOMMENDATIONS: Start omeprazole 40 mg daily for 2 weeks Plan - Discharge Summary Discharge Rx Participant: No New Discharge Prescriptions: New Omeprazole [PriLOSEC] 40 mg PO DAILY #14 cap Continue Medroxyprogesterone Acetate [Depo-Provera] 150 mg IM DIRECTED Discharge Medication List Medroxyprogesterone Acetate [Depo-Provera] 150 mg IM DIRECTED 11/30/23 [History] Omeprazole [PriLOSEC] 40 mg PO DAILY #14 cap 01/30/24 [Rx] [facility]Ref[facility] [place] [facility] [place] [facility] Patient Instructions/Handouts: Peptic Ulcer (DC) Discharge Disposition: HOME SELF-CARE
[2024-01-30 08:23] VITALS: BP 129/89; PULSE 69; RESP 16
== END 2024-01-30 08:40 | disposition home or self-care (01) ==
LOC: ORWHC2ENDO 06:41
PROVIDERS: ATTEND Surgery Plastic and Reconstructive Surgery
DX: K21.00 Gastro-esophageal reflux disease with esophagitis, without bleeding (principal); E66.01 Morbid (severe) obesity due to excess calories; K29.50 Unspecified chronic gastritis without bleeding; K25.9 Gastric ulcer, unspecified as acute or chronic, without hemorrhage or perforation; I10 Essential (primary) hypertension; F32.A Depression, unspecified; Z90.49 Acquired absence of other specified parts of digestive tract; Z98.890 Other specified postprocedural states; Z87.891 Personal history of nicotine dependence; Z79.899 Other long term (current) drug therapy; Z80.3 Family history of malignant neoplasm of breast; Z79.3 Long term (current) use of hormonal contraceptives; Z91.018 Allergy to other foods; Z88.9 Allergy status to unspecified drugs, medicaments and biological substances; Z88.3 Allergy status to other anti-infective agents; Z68.41 Body mass index [BMI] 40.0-44.9, adult
CPT/HCPCS: 81025; 43239; J2250; J2405; J2001; J2704; 88305

== ENCOUNTER → 2024-06-04 | Outpatient (CLI) | payer OTHER | LOC: LABPRL 12:34 | PROVIDERS: ATTEND Family Medicine | DX: Z53.9 Procedure and treatment not carried out, unspecified reason (principal) ==

== ENCOUNTER 2025-05-14 22:02 | Emergency (ER) | payer OTHER ==
[2025-05-14 22:34] VITALS: RESP 18
--- NOTE | 2025-05-14 22:52 | ED ---
General Adult HPI - General Chief complaint: Abdominal Pain Stated complaint: R Side Pain Time Seen by Provider: 05/14/25 22:17 Source: patient, RN notes reviewed, old records reviewed Mode of arrival: ambulatory Limitations: no limitations - History of Present Illness Initial comments: 34-year-old female presenting for right-sided flank pain and upper abdominal pain. Patient has had previous cholecystectomy. She does report some issues with IBS and intermittent constipation. No measured fever. No vomiting. No dysuria or hematuria. Denies current . - Related Data Home Medications Medication Instructions Recorded Confirmed Medroxyprogesterone Acetate 150 mg IM DIRECTED 11/30/23 01/30/24 [Depo-Provera] Previous Rx's Medication Instructions Recorded Omeprazole [PriLOSEC] 40 mg PO DAILY #14 cap 01/30/24 Allergies Allergy/AdvReac Type Severity Reaction Status Date / Time cetirizine HCl [From Zyrtec] Allergy Unknown Rash/Hives Verified 05/14/25 22:34 adhesive Allergy Rash/Hives Verified 05/14/25 22:34 benzoyl peroxide Allergy Rash/Hives Verified 05/14/25 22:34 العراقي Allergy Rash/Hives Verified 05/14/25 22:34 SUN AdvReac Rash/Hives Uncoded 05/14/25 22:34 Review of Systems ROS Statement: Those systems with pertinent positive or pertinent negative responses have been documented in the HPI. ROS Other: All systems not noted in ROS Statement are negative. Past Medical History Past Medical History: Hypertension, Neurologic Disorder Additional Past Medical History / Comment(s): migraine headaches (believed to be idiopathic intracranial hypertension per neurologist) History of Any Multi-Drug Resistant Organisms: None Reported Past Surgical History: Cholecystectomy Additional Past Surgical History / Comment(s): EGD, sinus surgery Past Anesthesia/Blood Transfusion Reactions: Postoperative Nausea & Vomiting (PONV) Past Psychological History: Depression, Panic Disorder Smoking Status: Former smoker Past Alcohol Use History: None Reported Past Drug Use History: None Reported - Past Family History Father Additional Family Medical History / Comment(s): Patient's father is displaying symptoms of Parkinson's; his brother has been dx with the disorder Mother Family Medical History: Cancer Additional Family Medical History / Comment(s): breast cancer dx at age 61 General Exam Limitations: no limitations General appearance: alert, in no apparent distress Head exam: Present: atraumatic, normocephalic Eye exam: Present: normal appearance, PERRL ENT exam: Present: normal exam Neck exam: Present: normal inspection. Absent: tenderness, meningismus Respiratory exam: Present: normal lung sounds bilaterally. Absent: respiratory distress, wheezes Cardiovascular Exam: Present: regular rate, normal rhythm GI/Abdominal exam: Present: tenderness Neurological exam: Present: alert, oriented X3, CN II-XII intact. Absent: motor sensory deficit Psychiatric exam: Present: normal affect, normal mood Course Vital Signs 05/14/25 05/15/25 05/15/25 22:30 00:40 01:49 Temperature 98.2 F 98.5 F Pulse Rate 67 63 68 Respiratory 18 18 18 Rate Blood Pressure 174/107 161/97 158/94 O2 Sat by Pulse 100 98 97 Oximetry 05/15/25 05/15/25 03:10 04:00 Temperature 98.4 F Pulse Rate 78 61 Respiratory 18 18 Rate Blood Pressure 155/88 157/89 O2 Sat by Pulse 98 98 Oximetry Medical Decision Making - Medical Decision Making Was pt. sent in by a medical professional or institution (, PA, INTERPERSONAL COMMUNICATIONS PROFESSOR, urgent care, hospital, or long-term...) When possible be specific @ -No Did you speak to anyone other than the patient for history (EMS, parent, family, police, friend...)? What history was obtained from this source @ -No Did you review nursing and triage notes (agree or disagree)? Why? @ -I reviewed and agree with nursing and triage notes Were old charts reviewed (outside hosp., previous admission, EMS record, old EKG, old radiological studies, urgent care reports/EKG's, long-term records)? Report findings @ -No old charts were reviewed Differential Abdominal Pain Women: Appendicitis, Cholecystitis, diverticulosis, ischemic bowel, pancreatitis, hepatitis, UTI, gastroenteritis, AAA, incarcerated hernia, bowel obstruction, constipation, inflammatory bowel, hepatitis, peptic ulcer disease, splenic infarction, perforated viscus, vulvitis, ovarian torsion, PID, kidney stone, placenta abruption, this is not meant to be an all-inclusive list EKG interpreted by me (3pts min.). @ -As above X-rays interpreted by me (1pt min.). @ -None done CT interpreted by me (1pt min.). @ -CT abdomen pelvis unremarkable, no acute findings, normal appendix U/S interpreted by me (1pt. min.). @ -None done What testing was considered but not performed or refused? (CT, X-rays, U/S, labs)? Why? @ -None What meds were considered but not given or refused? Why? @ -None Did you discuss the management of the patient with other professionals (professionals i.e. DrJeff, PA, INTERPERSONAL COMMUNICATIONS PROFESSOR, lab, RT, psych nurse, hospice social worker, crew boat operator, teacher, guest relation officer, complex case manager)? Give summary @ -No Was smoking cessation discussed for >3mins.? @ -No Was critical care preformed (if so, how long)? @ -No Were there social determinants of health that impacted care today? How? (Homelessness, low income, unemployed, alcoholism, drug addiction, trans portation, low edu. Level, literacy, decrease access to med. care, residential, rehab)? @ -No Was there de-escalation of care discussed even if they declined (Discuss DNR or withdrawal of care, Hospice)? DNR status @ -No What co-morbidities impacted this encounter? (DM, HTN, Smoking, COPD, CAD, Cancer, CVA, ARF, Chemo, Hep., AIDS, mental health diagnosis, sleep apnea, morbid obesity)? @ -None Was patient admitted / discharged? Hospital course, mention meds given and route, prescriptions, significant lab abnormalities, going to OR and other pertinent info. @ -34-year-old female with right-sided abdominal pain history of a cholecystectomy. Laboratory test including CBC, CMP, urinalysis is unrema rkable. CT of the abdomen pelvis is performed which is negative for acute findings. Patient reassured. Vital signs are stable. She will follow closely with her primary care provider. Return parameters discussed. Undiagnosed new problem with uncertain prognosis? @ -No Drug Therapy requiring intensive monitoring for toxicity (Heparin, Nitro, Insulin, Cardizem)? @ -No Were any procedures done? @ -No Diagnosis/symptom? @Abdominal pain Acute, or Chronic, or Acute on Chronic? @ -[Acute Uncomplicated (without systemic symptoms) or Complicated (systemic symptoms)? @ -Default Side effects of treatment? @ -No Exacerbation, Progression, or Severe Exacerbation? @ -No Poses a threat to life or bodily function? How? (Chest pain, USA, MS, pneumonia, PE, COPD, DKA, ARF, appy, cholecystitis, CVA, Diverticulitis, Homicidal, Suicidal, threat to staff... and all critical care pts) @ -No - Lab Data Result diagrams: 05/15/25 00:06 05/15/25 00:06 Lab Results 05/15/25 05/15/25 05/15/25 Range/Units 00:06 00:06 00:06 WBC 10.56 H (4.50-10.00) 10*3/uL RBC 4.58 (4.10-5.20) 10*6/uL Hgb 12.8 (12.0-15.0) g/dL Hct 38.7 (37.2-46.3) % MCV 84.5 (80.0-97.0) fL MCH 27.9 (27.0-32.0) pg MCHC 33.1 (32.0-37.0) g/dL Plt Count 342 (140-440) 10*3/uL MPV 10.8 (9.5-12.2) fL Immature Gran % (Auto) 0.4 % Neutrophils % 62.4 % Lymphocytes % 28.2 % Monocytes % 6.5 % Eosinophils % 2.0 % Basophils % 0.5 % Immature Gran # 0.04 (0.00-0.04) 10*3/uL Neutrophils # 6.59 (1.80-7.70) 10*3/uL Lymphocytes # 2.98 (0.90-5.00) 10*3/uL Monocytes # 0.69 (0.20-1.00) 10*3/uL Eosinophils # 0.21 (0.04-0.35) 10*3/uL Basophils # 0.05 (0.00-0.10) 10*3/uL PT 9.9 L (10.0-12.5) sec INR 0.9 (<1.2) APTT 23.2 (22.0-30.0) sec Sodium 140 (137-145) mmol/L Potassium 4.1 (3.5-5.1) mmol/L Chloride 104 (98-107) mmol/L Carbon Dioxide 24 (22-30) mmol/L Anion Gap 12 mmol/L BUN 9 (7-17) mg/dL Creatinine 0.70 (0.52-1.04) mg/dL Est GFR (CKD-EPI)AfAm >90 (>60 ml/min/1.73 sqM) Est GFR (CKD-EPI)NonAf >90 (>60 ml/min/1.73 sqM) Glucose 100 H (74-99) mg/dL Plasma Lactic Acid Martinez (0.7-2.0) mmol/L Calcium 9.9 (8.4-10.2) mg/dL Total Bilirubin 0.4 (0.2-1.3) mg/dL AST 30 (14-36) U/L ALT 20 (4-34) U/L Alkaline Phosphatase 58 (38-126) U/L Total Protein 7.6 (6.3-8.2) g/dL Albumin 4.5 (3.5-5.0) g/dL Amylase 67 (30-110) U/L Lipase 133 (23-300) U/L Urine Color Urine Appearance (Clear) Urine pH (5.0-8.0) Ur Specific [place] (1.001-1.035) Urine Protein (Negative) Urine Glucose (UA) (Negative) Urine Ketones (Negative) Urine Blood (Negative) Urine Nitrite (Negative) Urine Bilirubin (Negative) Urine Urobilinogen (<2.0) mg/dL Ur Leukocyte Esterase (Negative) Urine RBC (0-5) /hpf Urine WBC (0-5) /hpf Ur Squamous Epith Cells (0-4) /hpf Urine Bacteria (None) /hpf Urine Mucus (None) /hpf Urine HCG, Qual (Not Detectd) 05/15/25 05/15/25 05/15/25 Range/Units 00:06 01:53 01:53 WBC (4.50-10.00) 10*3/uL RBC (4.10-5.20) 10*6/uL Hgb (12.0-15.0) g/dL Hct (37.2-46.3) % MCV (80.0-97.0) fL MCH (27.0-32.0) pg MCHC (32.0-37.0) g/dL Plt Count (140-440) 10*3/uL MPV (9.5-12.2) fL Immature Gran % (Auto) % Neutrophils % % Lymphocytes % % Monocytes % % Eosinophils % % Basophils % % Immature Gran # (0.00-0.04) 10*3/uL Neutrophils # (1.80-7.70) 10*3/uL Lymphocytes # (0.90-5.00) 10*3/uL Monocytes # (0.20-1.00) 10*3/uL Eosinophils # (0.04-0.35) 10*3/uL Basophils # (0.00-0.10) 10*3/uL PT (10.0-12.5) sec INR (<1.2) APTT (22.0-30.0) sec Sodium (137-145) mmol/L Potassium (3.5-5.1) mmol/L Chloride (98-107) mmol/L Carbon Dioxide (22-30) mmol/L Anion Gap mmol/L BUN (7-17) mg/dL Creatinine (0.52-1.04) mg/dL Est GFR (CKD-EPI)AfAm (>60 ml/min/1.73 sqM) Est GFR (CKD-EPI)NonAf (>60 ml/min/1.73 sqM) Glucose (74-99) mg/dL Plasma Lactic Acid Martinez 1.1 (0.7-2.0) mmol/L Calcium (8.4-10.2) mg/dL Total Bilirubin (0.2-1.3) mg/dL AST (14-36) U/L ALT (4-34) U/L Alkaline Phosphatase (38-126) U/L Total Protein (6.3-8.2) g/dL Albumin (3.5-5.0) g/dL Amylase (30-110) U/L Lipase (23-300) U/L Urine Color Yellow Urine Appearance Cloudy H (Clear) Urine pH 6.0 (5.0-8.0) Ur Specific [place] 1.020 (1.001-1.035) Urine Protein Negative (Negative) Urine Glucose (UA) Negative (Negative) Urine Ketones Negative (Negative) Urine Blood Small H (Negative) Urine Nitrite Negative (Negative) Urine Bilirubin Negative (Negative) Urine Urobilinogen <2.0 (<2.0) mg/dL Ur Leukocyte Esterase Negative (Negative) Urine RBC 3 (0-5) /hpf Urine WBC 2 (0-5) /hpf Ur Squamous Epith Cells 7 H (0-4) /hpf Urine Bacteria Occasional H (None) /hpf Urine Mucus Many H (None) /hpf Urine HCG, Qual Not Detected (Not Detectd) Disposition Clinical Impression: Abdominal pain Disposition: HOME SELF-CARE Condition: Good Instructions (If sedation given, give patient instructions): Abdominal Pain (ED) Is patient prescribed a controlled substance at d/c from ED?: No Referrals: Meseret Pickens MD [Primary Care Provider] - 1-2 days Time of Disposition: 05:03
[2025-05-15 00:46] LABS: Basophils # (A) 0.05 10*3/uL (0.00-0.10); Basophils % (A) 0.5 %; Eosinophils # (A) 0.21 10*3/uL (0.04-0.35); Eosinophils % (A) 2.0 %; HCT 38.7 % (37.2-46.3); HGB 12.8 g/dL (12.0-15.0); Lymphocytes # (A) 2.98 10*3/uL (0.90-5.00); Lymphocytes % (A) 28.2 %; MCH 27.9 pg (27.0-32.0); MCHC 33.1 g/dL (32.0-37.0); MCV 84.5 fL (80.0-97.0); Monocytes # (A) 0.69 10*3/uL (0.20-1.00); Monocytes % (A) 6.5 %; Neutrophils # (A) 6.59 10*3/uL (1.80-7.70); Neutrophils % (A) 62.4 %; Platelet Count 342 10*3/uL (140-440); RBC 4.58 10*6/uL (4.10-5.20); RDW 14.0 % (11.5-14.5); WBC 10.56 10*3/uL (4.50-10.00)
[2025-05-15 00:57] LABS: INR 0.9 (<1.2); Partial Thromboplastin Time 23.2 sec (22.0-30.0); Prothrombin Time 9.9 sec (10.0-12.5)
[2025-05-15 01:06] LABS: ALT 20 U/L (4-34); AST 30 U/L (14-36); African American GFR (CKD) >90 (>60 ml/min/1.73 sqM); Albumin 4.5 g/dL (3.5-5.0); Alkaline Phosphatase 58 U/L (38-126); Amylase 67 U/L (30-110); Anion Gap 12 mmol/L; Blood Urea Nitrogen 9 mg/dL (7-17); Calcium 9.9 mg/dL (8.4-10.2); Carbon Dioxide 24 mmol/L (22-30); Chloride 104 mmol/L (98-107); Glucose 100 mg/dL (74-99); Lipase 133 U/L (23-300); Non-African American GFR(CKD) >90 (>60 ml/min/1.73 sqM); Potassium 4.1 mmol/L (3.5-5.1); Sodium 140 mmol/L (137-145); Total Protein 7.6 g/dL (6.3-8.2)
[2025-05-15] MEDS: SODIUM CHLORIDE 0.9% 1,000 ML IV ONE (01:27)
[2025-05-15 02:18] LABS: Bacteria,Urine Occasional /hpf; Bilirubin,Urine Negative (Negative); Blood,Urine Small (Negative); Color,Urine Yellow; Glucose,Urine (UA) Negative (Negative); Ketones,Urine Negative (Negative); Leukocyte Esterase,Urine Negative (Negative); Mucus,Urine Many /hpf; Nitrite,Urine Negative (Negative); PH, Urine 6.0 (5.0-8.0); Protein,Urine Negative (Negative); RBC,Urine 3 /hpf (0-5); Specific Gravity,Urine 1.020 (1.001-1.035); Squamous Epithelial Cell,Urine 7 /hpf (0-4); Urobilinogen,Urine <2.0 mg/dL (<2.0); WBC,Urine 2 /hpf (0-5)
--- NOTE | 2025-05-15 04:27 | CT ---
EXAM: CT Abdomen and Pelvis With Intravenous Contrast CLINICAL HISTORY: Right lower quadrant Pain TECHNIQUE: Axial computed tomography images of the abdomen and pelvis with intravenous contrast. CTDI is 27.4 mGy and DLP is 1244.6 mGy-cm. This CT exam was performed using one or more of the following dose reduction techniques: automated exposure control, adjustment of the mA and/or kV according to patient size, and/or use of iterative reconstruction technique. COMPARISON: No relevant prior studies available. FINDINGS: Lung bases: Unremarkable. No mass. No consolidation. ABDOMEN: Liver: Unremarkable. No mass. Gallbladder and bile ducts: Unremarkable. No calcified stones. No ductal dilation. Pancreas: Unremarkable. No mass. No ductal dilation. Spleen: Unremarkable. No splenomegaly. Adrenals: Unremarkable. No mass. Kidneys and ureters: Unremarkable. No solid mass. No hydronephrosis. Stomach and bowel: Unremarkable. No obstruction. No mucosal thickening. PELVIS: Appendix: Normal appendix. Bladder: Unremarkable. No mass. Reproductive: Unremarkable as visualized. ABDOMEN and PELVIS: Intraperitoneal space: Unremarkable. No free air. No significant fluid collection. Bones/joints: No acute fracture. No dislocation. Soft tissues: Unremarkable. Vasculature: Unremarkable. No abdominal aortic aneurysm. Lymph nodes: Unremarkable. No enlarged lymph nodes. IMPRESSION: No acute finding of the abdomen or pelvis. Normal appendix.
[2025-05-15 05:24] VITALS: BP 144/80; PULSE 71; TEMP 98.2
== END 2025-05-15 05:24 | disposition home or self-care (01) ==
LOC: EC 22:02
DX: R10.10 Upper abdominal pain, unspecified (principal); K58.9 Irritable bowel syndrome, unspecified; Z90.49 Acquired absence of other specified parts of digestive tract; Z87.891 Personal history of nicotine dependence; Z91.09 Other allergy status, other than to drugs and biological substances; Z91.018 Allergy to other foods; Z88.8 Allergy status to other drugs, medicaments and biological substances
CPT/HCPCS: 99284; 96360; 96361; 36415; 80053; 82150; 83605; 83690; 85025; 85610; 85730; 81001; 81025; 74177; Q9967